=== PATIENT | female | born 1935 | race Caucasian/White ===

== ENCOUNTER 2022-09-25 04:26 | Inpatient (IN) ==
--- NOTE | 2022-09-25 04:42 | Emergency Department Note ---
History of Present Illness General Chief complaint: Illness Stated complaint: ILLNESS Time Seen by Provider: 09/25/22 04:37 Source: patient and EMS Mode of arrival: EMS Limitations: altered mental status History of Present Illness Provider complaint: Fatigue, cough, hypoxia This is an 86-year-old female brought in by EMS from a personal care facility due to concern for increased fatigue, worsening cough, confusion. Patient does not recall when she first started feeling ill. Staff there noticed today the patient seemed worse, more fatigued, increasing cough, and seemed confused. They did check vitals on the patient and found her to be 85% on room air. Patient states she did receive a flu vaccine. It was relayed to EMS by staff at this facility that they have had a lot of flu a positive residence there recently. They state the patient does not typically wear oxygen or have any difficulty breathing. The patient denies any history of asthma, COPD, or tobacco abuse. Patient denies any current chest pain or abdominal pain. EMS reported she was hypoxic for them however improved on 4 L via nasal cannula. Patient did appear clinically dehydrated so they gave her 500 mL bolus of fluids while in route. Home Medications Medication Instructions Recorded Confirmed Type acetaminophen 325 mg capsule 650 mg PO QID PRN Fever Or Pain 09/25/22 09/25/22 History (Tylenol) acetaminophen 500 mg tablet 500 mg PO TID PRN Fever Or Pain 09/25/22 09/25/22 History alendronate 10 mg tablet 10 mg PO DAILY 09/25/22 09/25/22 History apixaban 2.5 mg tablet (Eliquis) 2.5 mg PO DAILY 09/25/22 09/25/22 History calcium carbonate 600 mg-vitamin 1 tab PO TID 09/25/22 09/25/22 History D3 10 mcg (400 unit) tablet (Calcium 600 + D(3)) dextromethorphan polistirex 30 10 ml PO Q12H PRN Cough 09/25/22 09/25/22 History mg/5 mL oral susp ext.release 12hr (Delsym 12 hour) docusate sodium 100 mg capsule 100 mg PO HS 09/25/22 09/25/22 History donepezil 10 mg tablet 10 mg PO HS 09/25/22 09/25/22 History esomeprazole magnesium 40 mg 40 mg PO QAM 09/25/22 09/25/22 History capsule,delayed release hydrocortisone See Rx Instructions .Route .COMPLEX 09/25/22 09/25/22 History hydroxyzine HCl 25 mg tablet 25 mg PO HS 09/25/22 09/25/22 History lidocaine 4 % topical patch 1 patch topical DAILY PRN pain 09/25/22 09/25/22 History (Lidocaine Pain Relief) losartan 25 mg tablet 25 mg PO DAILY 09/25/22 09/25/22 History memantine 10 mg tablet 10 mg PO BID 09/25/22 09/25/22 History multivitamin-iron (hematinic) 1 tab PO DAILY 09/25/22 09/25/22 History pravastatin 80 mg tablet 80 mg PO DAILY 09/25/22 09/25/22 History sertraline 25 mg tablet 25 mg PO USEASDIRECTD PRN 09/25/22 09/25/22 History depression sertraline 50 mg tablet 50 mg PO DAILY 09/25/22 09/25/22 History tolterodine 2 mg capsule,extended 2 mg PO DAILY 09/25/22 09/25/22 History release 24 hr vit D3-folic acid-vit B2-B6-B12 1 tab PO DAILY 09/25/22 09/25/22 History 2,000 unit-800 mcg-0.32 mg tablet Allergies Allergy/AdvReac Type Severity Reaction Status Date / Time Sulfa (Sulfonamide Allergy Unknown Unknown Verified 09/25/22 10: Antibiotics) Past Med/Surg History Medical History A-fib Dementia GERD (gastroesophageal reflux disease) HTN (hypertension) Hyperlipidemia Osteoporosis Social History Smoking Status: Never smoker Second Hand Exposure: No; Do You Dip or Chew Tobacco: No; Tobacco Cessation Education Requested by Patient: No Hx Alcohol Use: No Hx Substance Use: No Preferred Language: Ukrainian Communication Ability: Effective Medical Certification Specialist Required: No Beliefs That Will Affect Care: None Current Living Situation: Alf Feels Safe at Home: Yes Safety Concerns: Feels Safe At This Time Assistive Devices: Wheelchair Review of Systems A total of 10 systems reviewed and were otherwise negative All systems reviewed & are unremarkable except as noted in HPI & below Physical Exam Vital Signs Vital Signs - 24 hr 09/25/22 04:13 Temperature 37.4 C Temperature Source Oral Pulse Rate 72 Respiratory Rate 24 Respiratory Effort / Characteristics Non-Labored Respiratory Depth Normal Blood Pressure 153/67 H Blood Pressure Mean 95 Pulse Oximetry 90 Oxygen Delivery Method Room Air Sepsis Recent Fever Within 48 Hours Yes Sepsis New/Unexplained Change in Mental Status Yes Sepsis Action Taken by Nursing Physician Notified GENERAL: alert, unwell appearing, well nourished, no distress, non-toxic EYE EXAM: normal conjunctiva, PERRL and EOM's grossly intact OROPHARYNX: no exudate, no erythema, lips, buccal mucosa, and tongue normal and mucous membranes are dry NECK: supple, no nuchal rigidity, no adenopathy, non-tender LUNGS: Decreased b/l to auscultation. Normal chest wall mechanics, no w/r/r CHEST WALL: Well-healed surgical scars noted to anterior chest wall including current surgery with prosthetic breast implants. HEART: no murmurs, S1 normal and S2 normal ABDOMEN: abdomen soft, non-tender, normo-active bowel sounds, no masses, no rebound or guarding. BACK: Back is symmetrical on inspection and there is no deformity, no midline tenderness, no CVA tenderness. SKIN: no rashes and no bruising UPPER EXTREMITIES: upper extremities are grossly normal. FROM, nml pulses b/l. LOWER EXTREMITIES: No pitting edema. FROM, nml pulses b/l. NEURO EXAM: Confused to recent events as well as date/time, cranial nerves II- XII grossly intact, normal speech, no gross weakness of arms, no gross weakness of legs. Gross sensation intact. Course Administered Medications Acetaminophen (Acetaminophen 325 Mg Tab) 650 mg PO Q4H PRN PRN Reason: pain/fever Stop: 10/25/22 08:00 Last Admin: 09/26/22 19:48 Dose: 650 mg Documented By: Admin: 09/26/22 08:03 Dose: 650 mg Documented By: IVIS Alendronate Sodium (Alendronate Sodium 10 Mg Tab) 10 mg PO QAM [facility] Stop: 10/26/22 08:59 Last Admin: 09/26/22 08:03 Dose: 10 mg Documented By: IVIS Apixaban (Apixaban 2.5 Mg Tab) 2.5 mg PO BID [facility] Stop: 10/25/22 10:44 Last Admin: 09/26/22 19:18 Dose: 2.5 mg Documented By: Admin: 09/26/22 08:11 Dose: 2.5 mg Documented By: Admin: 09/25/22 19:30 Dose: 2.5 mg Documented By: Admin: 09/25/22 11:45 Dose: 2.5 mg Documented By: CASSI Donepezil HCl (Donepezil Hcl 10 Mg Tab) 10 [facility] [place] Stop: 10/25/22 10:44 Last Admin: 09/26/22 08:11 Dose: 10 mg Documented By: Admin: 09/25/22 11:46 Dose: 10 mg Documented By: CASSI Doxycycline Hyclate (Doxycycline Hyclate 100 Mg Cap) 100 mg PO BID [facility] Stop: 10/03/22 13:59 Last Admin: 09/26/22 19:19 Dose: 100 mg Documented By: STEPHANY Guaifenesin (Guaifenesin 600 Mg Tabcr) 600 mg PO Q12 [facility] Stop: 10/26/22 20:59 Last Admin: 09/26/22 19:48 Dose: 600 mg Documented By: STEPHANY Losartan Potassium (Losartan Potassium 25 Mg Tab) 25 mg PO [facility] Stop: 10/25/22 10:44 Last Admin: 09/26/22 08:10 Dose: 25 mg Documented By: Admin: 09/25/22 11:47 Dose: 25 mg Documented By: CASSI Memantine (Memantine Hcl 10 Mg Tab) 10 mg PO [facility] Stop: 10/25/22 10:44 Last Admin: 09/26/22 08:09 Dose: 10 mg Documented By: Admin: 09/25/22 11:47 Dose: 10 mg Documented By: CASSI Oseltamivir Phosphate (Oseltamivir Phosphate 75 Mg Cap) 75 mg PO BID [facility]; Protocol Stop: 09/30/22 10:44 Last Admin: 09/26/22 19:19 Dose: 75 mg Documented By: Admin: 09/26/22 08:07 Dose: 75 mg Documented By: Admin: 09/25/22 19:30 Dose: 75 mg Documented By: Admin: 09/25/22 11:46 Dose: 75 mg Documented By: CASSI Pantoprazole Sodium (Pantoprazole 40 Mg Tab) 40 mg PO [facility] Stop: 10/25/22 10:44 Last Admin: 09/26/22 08:07 Dose: 40 mg Documented By: Admin: 09/25/22 11:47 Dose: 40 mg Documented By: CASSI Pravastatin Sodium (Pravastatin Sod 40 Mg Tab) 80 mg PO DAILY@1700 [facility] Stop: 10/25/22 16:59 Last Admin: 09/26/22 16:31 Dose: 80 mg Documented By: Admin: 09/25/22 18:17 Dose: 80 mg Documented By: FOSTER Sertraline HCl (Sertraline Hcl 50 Mg Tablet) 50 mg PO [facility] Stop: 10/25/22 10:44 Last Admin: 09/26/22 08:07 Dose: 50 mg Documented By: Admin: 09/25/22 11:47 Dose: 50 mg Documented By: CASSI Tolterodine Tartrate (Tolterodine Tartrate La 2 Mg Capcr) 2 mg PO [facility] Stop: 10/25/22 10:44 Last Admin: 09/26/22 08:07 Dose: 2 mg Documented By: Admin: 09/25/22 11:46 Dose: 2 mg Documented By: CASSI Discontinued Medications Doxycycline Hyclate (Doxycycline Hyclate 100 Mg Cap) 100 mg PO ONE ONE Stop: 09/26/22 14:16 Last Admin: 09/26/22 15:34 Dose: 100 mg Documented By: IVIS Enoxaparin Sodium (Enoxaparin Inj 40 Mg/0.4 Ml Syr) 40 mg SQ Q24H [facility] Stop: 10/25/22 08:00 Last Admin: 09/25/22 12:31 Dose: Not Given Documented By: MERCEDEZ Sodium Chloride (Nss 1000ml) 500 mls @ 999 mls/hr IV .Q31M [facility] Stop: 09/25/22 05:15 Last Infusion: 09/25/22 06:00 Dose: 0 mls/hr Documented By: Admin: 09/25/22 05:04 Dose: 999 mls/hr Documented By: IZA Sodium Chloride (Nss 1000ml) 1,000 mls @ 100 mls/hr IV .Q10H [facility] Stop: 10/25/22 06:29 Last Infusion: 09/25/22 16:58 Dose: 0 mls/hr Documented By: Infusion: 09/25/22 12:31 Dose: 0 mls/hr Documented By: Admin: 09/25/22 06:45 Dose: 100 mls/hr Documented By: IZA Medical Decision Making Differential Diagnosis Differential diagnoses includes but is not limited to pneumonia, bronchitis, COPD/Asthma exacerbation, pneumothorax, pulmonary embolism, congestive heart failure, acute coronary syndrome Medical Records Attestation: I reviewed the patient's medical records. Home Medications Current Medication List: was personally reviewed by me Laboratory Data Attestation: I reviewed the patient's lab results. Result diagrams: 09/26/22 08:23 09/26/22 08:23 Lab Results 09/25/22 09/25/22 09/25/22 Range/Units 04:40 04:40 04:40 WBC 5.95 (4.8-10.8) K/ul RBC 4.29 (3.93-5.22) M/uL Hgb 12.6 (12.0-16.0) g/dl Hct 38.0 (34.1-44.9) % MCV 88.6 (80.0-100.0) fL MCH 29.4 (25.0-34.0) pg MCHC 33.2 (32.0-36.0) g/dL RDW Std Deviation 45.5 (36.4-46.3) fL RDW Coeff of Kim 14.0 (11.5-14.5) % Plt Count 174 (130-400) K/uL MPV 9.6 (9.4-12.3) fL Immature Gran % (Auto) 0.5 % Neut % (Auto) 80.3 % Lymph % (Auto) 8.4 % Tripp % (Auto) 9.6 % Eos % (Auto) 1.0 % Baso % (Auto) 0.2 % Neut # (Auto) 4.78 (1.4-6.5) K/uL Lymph # (Auto) 0.50 L (1.2-3.4) K/uL Tripp # (Auto) 0.57 (0.24-0.82) K/uL Eos # (Auto) 0.06 (0-0.50) K/uL Baso # (Auto) 0.01 (0-0.2) K/uL Immature Gran # (Auto) 0.03 H (0.00-0.02) K/uL Sodium 136 (136-145) mmol/L Potassium TNP Chloride 104 (98-107) mmol/L Carbon Dioxide 26 (21-32) mmol/L Anion Gap 6 (3-11) BUN 15 (6-23) mg/dl Creatinine 0.63 (0.6-1.2) mg/dl Est Cr Clr Drug Dosing 61.8 ml/min Est GFR ( Amer) 95.5 ml/min Est GFR (Non-Af Amer) 82.4 ml/min BUN/Creatinine Ratio 23.8 H (10-20) Glucose 135 H (70-99(Fasting)) mg/dl Lactate 0.7 (0.4-2.0) mmol/L Calcium 8.9 (8.5-10.1) mg/dl Magnesium 1.7 (1.7-2.4) mg/dl Total Bilirubin 0.4 (0.2-1.0) mg/dl Direct Bilirubin TNP AST TNP ALT 19 (7-52) U/L Alkaline Phosphatase 59 (34-104) U/L Troponin I High Sens 14.7 H (0-14) pg/ml Total Protein 6.1 (6.0-8.3) gm/dl Albumin 3.7 (3.4-5.0) gm/dl Procalcitonin (0-0.5) ng/ml SARS-CoV-2 (PCR) (Negative) Influenza Type A (PCR) (Neg) Influenza Type B (PCR) (Neg) RSV (RT-PCR) (Neg) 09/25/22 09/25/22 09/25/22 Range/Units 04:40 04:40 06:04 WBC (4.8-10.8) K/ul RBC (3.93-5.22) M/uL Hgb (12.0-16.0) g/dl Hct (34.1-44.9) % MCV (80.0-100.0) fL MCH (25.0-34.0) pg MCHC (32.0-36.0) g/dL RDW Std Deviation (36.4-46.3) fL RDW Coeff of Kim (11.5-14.5) % Plt Count (130-400) K/uL MPV (9.4-12.3) fL Immature Gran % (Auto) % Neut % (Auto) % Lymph % (Auto) % Tripp % (Auto) % Eos % (Auto) % Baso % (Auto) % Neut # (Auto) (1.4-6.5) K/uL Lymph # (Auto) (1.2-3.4) K/uL Tripp # (Auto) (0.24-0.82) K/uL Eos # (Auto) (0-0.50) K/uL Baso # (Auto) (0-0.2) K/uL Immature Gran # (Auto) (0.00-0.02) K/uL Sodium (136-145) mmol/L Potassium 4.0 Chloride (98-107) mmol/L Carbon Dioxide (21-32) mmol/L Anion Gap (3-11) BUN (6-23) mg/dl Creatinine (0.6-1.2) mg/dl Est Cr Clr Drug Dosing ml/min Est GFR ( Amer) ml/min Est GFR (Non-Af Amer) ml/min BUN/Creatinine Ratio (10-20) Glucose (70-99(Fasting)) mg/dl Lactate (0.4-2.0) mmol/L Calcium (8.5-10.1) mg/dl Magnesium (1.7-2.4) mg/dl Total Bilirubin (0.2-1.0) mg/dl Direct Bilirubin 0.0 AST 24 ALT (7-52) U/L Alkaline Phosphatase (34-104) U/L Troponin I High Sens (0-14) pg/ml Total Protein (6.0-8.3) gm/dl Albumin (3.4-5.0) gm/dl Procalcitonin < 0.05 (0-0.5) ng/ml SARS-CoV-2 (PCR) NEGATIVE (Negative) Influenza Type A (PCR) Positive A* (Neg) Influenza Type B (PCR) Negative (Neg) RSV (RT-PCR) Negative (Neg) Imaging Data My Impression: X-ray: I interpreted the following studies. Chest: A single view study of the chest was reviewed and was negative for cardiomegaly, focal infiltrate, effusion, pulmonary edema, or wide mediastinum. Pacemaker noted. Radiologist's Impression: CT OF THE HEAD WITHOUT CONTRAST CLINICAL HISTORY: Confusion. COMPARISON STUDY: No previous studies for comparison. CT DOSE: 614.27 mGy.cm TECHNIQUE: Helical axial images of the head were obtained without IV contrast. Automated exposure control was utilized for the study. A dose lowering technique was utilized adhering to the principles of ALARA. FINDINGS: No acute intracranial hemorrhage, midline shift or mass effect is present. There is moderate dilatation of the lateral ventricles. There is mild dilatation of the third and fourth ventricles. Basal cisterns are patent. No extra-axial fluid collections are present. 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 White matter hypodensities statistically reflect small vessel disease. There are no findings to suggest acute dural sinus thrombosis or acute territorial infarct. There is no acute calvarial fracture. Minimal sinus mucosal thickening is present. Suspected old defect within the left orbital floor is noted. Degenerative changes of the temporomandibular joints are present. IMPRESSION: 1. No acute intracranial hemorrhage. 2. Moderate dilatation of the lateral ventricles. This is likely due to atrophy. Normal pressure hydrocephalus could appear similar but is considered less likely. 3. 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 ACT 112: Negative or not required by law. Electronically signed by: Joe Vivas M.D. 09/25/2022 6:46 AM ECG Data Attestation: I personally reviewed and interpreted this ECG as follows: Indication: + weakness Rate (beats per minute): 63 Rhythm: + normal sinus ECG Intervals/blocks: + Normal QRS and + Normal QT ECG [place]: + Normal ECG ST segments: + Nonspecific ST abnormalities MDM Narrative An order was placed for continuous cardiac monitoring. The monitor shows a rate of _70_ with __normal sinus_ rhythm. This is an 86 yo female brought in by EMS from facility due to concern for increased fatigue, worsening cough, mild confusion and finding of hypoxia on check of VS. Patient's hypoxia improved with oxygen via [place] for EMS and she had no increased wob. VS stable enroute and while in the ER. She was given 500 ml by ems, another 500 ml here and the decreased to maintenance due to unclear cardiac history. Patient slightly confused to chronology of events and date on arrival but knew person/ and place. Labs sent and cxr performed. EKG reassuring. No focal consolidation on my view of the cxr. No obvious adventitious lung sounds on exam. CT head reassuring. Patient found to be positive for flu. Given advanced age and viral infection, this likely explains other symptoms noted. Discussed with hospitalist for additional inpatient mgmt. UA still pending as was med list from facility. Impression & Plan Dyspnea, Hypoxia, Confusion, Influenza, Dehydration Discharge Plan Visit Data Chief Complaint: Illness Stated Complaint: ILLNESS ED Provider: Beverly Tavarez Discharge Problem: Dyspnea, Hypoxia, Confusion, Influenza, Dehydration Patient Disposition: Admitted As Inpatient Discharge Instructions Interventions: ED Discharge Assessment Last Done: 09/25/22 07:59
[2022-09-25] MEDS ORDERED: SODIUM CHLORIDE 0.9% 1000ML 500 ML IV SCH (04:45)
[2022-09-25 05:05] LABS: Basophils # (auto) 0.01 K/uL (0-0.2); Basophils % (auto) 0.2 %; Eosinophils # (auto) 0.06 K/uL (0-0.50); Hemoglobin 12.6 g/dl (12.0-16.0); Immature Granulocytes # (auto) 0.03 K/uL (0.00-0.02); Immature Granulocytes % (auto) 0.5 %; Lymphocytes % (auto) 8.4 %; Mean Corpuscular Hemoglobin 29.4 pg (25.0-34.0); Mean Corpuscular Hgb Conc 33.2 g/dL (32.0-36.0); Mean Corpuscular Volume 88.6 fL (80.0-100.0); Mean Platelet Volume 9.6 fL (9.4-12.3); Monocytes # (auto) 0.57 K/uL (0.24-0.82); Monocytes % (auto) 9.6 %; Neutrophils # (auto) 4.78 K/uL (1.4-6.5); Neutrophils % (auto) 80.3 %; Platelet Count 174 K/uL (130-400); RDW Standard Deviation 45.5 fL (36.4-46.3); Red Blood Count 4.29 M/uL (3.93-5.22); White Blood Count 5.95 K/ul (4.8-10.8)
[2022-09-25 05:30] LABS: Alanine Aminotransferase 19 U/L (7-52); Albumin Level 3.7 gm/dl (3.4-5.0); Alkaline Phosphatase 59 U/L (34-104); Anion Gap 6 (3-11); BUN Creatinine Ratio 23.8 (10-20); Bilirubin,Total 0.4 mg/dl (0.2-1.0); Blood Urea Nitrogen 15 mg/dl (6-23); Calcium 8.9 mg/dl (8.5-10.1); Carbon Dioxide 26 mmol/L (21-32); Chloride 104 mmol/L (98-107); Creatinine Clr Calc Pharmacy 61.8 ml/min; Est GFR (African American) 95.5 ml/min; Est GFR (Non-African American) 82.4 ml/min; Glucose 135 mg/dl (70-99(Fasting)); Magnesium 1.7 mg/dl (1.7-2.4); Sodium 136 mmol/L (136-145); Total Protein 6.1 gm/dl (6.0-8.3)
[2022-09-25 06:02] LABS: Influenza B virus by PCR Negative (Neg); RSV by PCR Negative (Neg); SARS CoV2 RNA(COVID-19) Ceph NEGATIVE (Negative)
[2022-09-25] MEDS ORDERED: SODIUM CHLORIDE 0.9% 1000ML 1,000 ML IV SCH (06:30)
[2022-09-25 06:35] LABS: Influenza A virus by PCR Positive (Neg)
--- NOTE | 2022-09-25 06:47 | CT Scan Report ---
CT OF THE HEAD WITHOUT CONTRAST CLINICAL HISTORY: Confusion. COMPARISON STUDY: No previous studies for comparison. CT DOSE: 614.27 mGy.cm TECHNIQUE: Helical axial images of the head were obtained without IV contrast. Automated exposure con trol was utilized for the study. A dose lowering technique was utilized adhering to the principles o f ALARA. FINDINGS: No acute intracranial hemorrhage, midline shift or mass effect is present. There is moderat e dilatation of the lateral ventricles. There is mild dilatation of the third and fourth ventricles. Basal cisterns are patent. No extra-axial fluid collections are present. 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 White matter hypodensities statistically reflect small vessel d isease. There are no findings to suggest acute dural sinus thrombosis or acute territorial infarct. T here is no acute calvarial fracture. Minimal sinus mucosal thickening is present. Suspected old defec t within the left orbital floor is noted. Degenerative changes of the temporomandibular joints are pr esent. IMPRESSION: 1. No acute intracranial hemorrhage. 2. Moderate dilatation of the lateral ventricles. This is likely due to atrophy. Normal pressure hydr ocephalus could appear similar but is considered less likely. 3. 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 ACT 112: Negative or not required by law. Electronically signed by: Joe Vivas M.D. 09/25/2022 6:46 AM
--- NOTE | 2022-09-25 06:52 | XRay Report ---
XR chest 1V portable CLINICAL HISTORY: Sepsis. COMPARISON STUDY: No previous studies for comparison. FINDINGS: Left subclavian pacer and left axillary surgical clips are incidentally noted. 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 Patient i s rotated. No pneumothorax or pleural effusion is present. Cardiac size is within normal limits. Ther e is no evidence for pulmonary edema. Left basilar airspace opacity is present. No airspace opacities within the right lung is present. Extensive atherosclerotic plaque of the aortic arch. IMPRESSION: Left basilar airspace opacity suspicious for pneumonia. Radiographic follow-up to ensure resolution is recommended. ACT 112: Negative or not required by law. Electronically signed by: Joe Vivas M.D. 09/25/2022 6:50 AM
--- NOTE | 2022-09-25 07:39 | History & Physical Report ---
Date of Service September 25, 2022 Assessment & Plan (1) Influenza A: Plan: - Patient was placed on 2 Liters O2 nasal canula and is currently saturating well at 96% and in NAD - Started on Oseltamivir 75mg BID (2) Hypoxia: Plan: - See above (3) HTN (hypertension): Plan: - Continue home medications Donepezil 10mg, Losartan 25mg (4) Hyperlipidemia: Plan: - Continue Pravastatin 80mg (5) GERD (gastroesophageal reflux disease): Plan: - Pantoprazole 40mg daily (6) A-fib: Plan: Continue home medication Eliquis 2.5mg BID (7) Dementia: Plan: - Continue Memantine 10mg - Patient is A&O x 3 Plan Patient had EKG changes and no previous EKG to compare. Mildly elevated troponin. She has no Chest pain or Dyspnea Will repeat Troponin and also ordered an echo Discussed patient with Dr Carroll, who helped in treatment and management of this patient Admission and Anticipated Discharge Date Admission Date: September 25, 2022 History of Present Illness Chief Complaint: cough, weakness Primary Care Provider: [employer] This is a 86 year old female with a past medical history of HTN, HLD, A Fib on Eliquis, Dementia, GERD, osteoporosis who presented to [facility] via EMS from [facility] today with complaints of increasing lethargy, cough and was found to be saturating at 85% on RA when EMS arrived. Patient has had no prior history of SOB, asthma, or COPD. Patient has never had to use oxygen and no history of SOLANGE. [facility], patient had increasing fatigue and coughing. There were several other residents at the home with Delano gould. Patient has no history of tobacco abuse. Patient denies any abdominal pain, nausea, vomiting, chest pain or dyspnea. EMS notes stated she improved after applying 4L NC oxygen. Currently patient is on 2L NC oxygen and saturating at 98%. She is not SOB and in NAD. She is able to speak in complete sentences without difficulty. Patient was also given a 500mL bolus of fluids in route. Currently patient tells me she is feeling much better. EKG revealed NSR, incomplete right BBB, possible Inferior infarct, age undetermined Mildly elevated troponin of 14.7 No previous EKGs to compare Patient denies any dyspnea or Chest Pain Repeat Troponin level and also Echo Patient has a hx of Dementia but she is Alert and Oriented x 3 and discussed code status with patient and she stated she would not want any chest compressions, CPR or intubation. She wished to be DNR/DNI I also spoke with patient's daughter Katarina via the phone who advised that her mother is DNR/DNI code status. Allergies Allergy/AdvReac Type Severity Reaction Status Date / Time Sulfa (Sulfonamide Allergy Unknown Unknown Verified 09/25/22 10:22 Antibiotics) Home Medications Medication Instructions Recorded Confirmed Type acetaminophen 325 mg capsule 650 mg PO QID PRN Fever Or Pain 09/25/22 09/25/22 History (Tylenol) acetaminophen 500 mg tablet 500 mg PO TID PRN Fever Or Pain 09/25/22 09/25/22 History alendronate 10 mg tablet 10 mg PO DAILY 09/25/22 09/25/22 History apixaban 2.5 mg tablet (Eliquis) 2.5 mg PO DAILY 09/25/22 09/25/22 History calcium carbonate 600 mg-vitamin 1 tab PO TID 09/25/22 09/25/22 History D3 10 mcg (400 unit) tablet (Calcium 600 + D(3)) dextromethorphan polistirex 30 10 ml PO Q12H PRN Cough 09/25/22 09/25/22 History mg/5 mL oral susp ext.release 12hr (Delsym 12 hour) docusate sodium 100 mg capsule 100 mg PO HS 09/25/22 09/25/22 History donepezil 10 mg tablet 10 mg PO HS 09/25/22 09/25/22 History esomeprazole magnesium 40 mg 40 mg PO QAM 09/25/22 09/25/22 History capsule,delayed release hydrocortisone See Rx Instructions .Route .COMPLEX 09/25/22 09/25/22 History hydroxyzine HCl 25 mg tablet 25 mg PO HS 09/25/22 09/25/22 History lidocaine 4 % topical patch 1 patch topical DAILY PRN pain 09/25/22 09/25/22 History (Lidocaine Pain Relief) losartan 25 mg tablet 25 mg PO DAILY 09/25/22 09/25/22 History memantine 10 mg tablet 10 mg PO BID 09/25/22 09/25/22 History multivitamin-iron (hematinic) 1 tab PO DAILY 09/25/22 09/25/22 History pravastatin 80 mg tablet 80 mg PO DAILY 09/25/22 09/25/22 History sertraline 25 mg tablet 25 mg PO USEASDIRECTD PRN 09/25/22 09/25/22 History depression sertraline 50 mg tablet 50 mg PO DAILY 09/25/22 09/25/22 History tolterodine 2 mg capsule,extended 2 mg PO DAILY 09/25/22 09/25/22 History release 24 hr vit D3-folic acid-vit B2-B6-B12 1 tab PO DAILY 09/25/22 09/25/22 History 2,000 unit-800 mcg-0.32 mg tablet Past Med/Surg History Medical History A-fib Dementia GERD (gastroesophageal reflux disease) HTN (hypertension) Hyperlipidemia Osteoporosis Social History Smoking Status: Never smoker Second Hand Exposure: No; Do You Dip or Chew Tobacco: No; Tobacco Cessation Education Requested by Patient: No Hx Alcohol Use: No Hx Substance Use: No Preferred Language: Georgian Communication Ability: Effective Rug Cleaning Supervisor Required: No Beliefs That Will Affect Care: None Current Living Situation: Group Home Feels Safe at Home: Yes Safety Concerns: Feels Safe At This Time Assistive Devices: Wheelchair Review of Systems Constitutional: + fever, + chills, + body aches and + fatigue; no anorexia and no weight loss Eyes: no blind spots, no loss of peripheral vision and no problem reported Ear, Nose, Mouth, Throat: + nasal congestion and + post nasal drip; no sinus pain/pressure Respiratory: + cough and + chest congestion; no dyspnea, no hemoptysis and no pain on inspiration Cardiovascular: no chest pain, no chest pain with activity, no dyspnea at rest and no calf pain Gastrointestinal: no abdominal pain, no nausea, no vomiting and no dysphagia Musculoskeletal: + body aches; no neck pain and no muscle weakness Integumentary: no rash, no lesions and no new lesions Physical Exam Constitutional: well developed, well nourished and average body habitus; not diaphoretic ENMT: external ear and nose normal, oropharynx normal Neck: trachea midline, no thyromegaly Respiratory: normal respiratory effort, + cough, able to speak in complete sentences and symmetric chest movement; no labored breathing Cardiovascular: Rate/Rhythm: regular rate and regular rhythm Extremities: + edema; no calf tenderness Gastrointestinal (Abdomen): normal bowel sounds, soft, nontender, no hepatosplenomegaly Psychiatric: A+Ox3, euthymic affect Results & Data Results & Data ([facility]) Vital Signs (Past 12 Hours) Vital Signs Temp Pulse Resp BP Pulse Ox O2 Del Method O2 Flow Rate 09/25/22 06:53 98 Nasal Cannula 09/25/22 04:53 96 Nasal Cannula 09/25/22 04:37 98 Nasal Cannula 09/25/22 04:38 Nasal Cannula 09/25/22 04:38 96 Nasal Cannula 4 09/25/22 04:13 37.4 C 72 24 153/67 H 90 Room Air Laboratory Results Laboratory Results - last 24 hr 09/25/22 09/25/22 09/25/22 04:40 04:40 04:40 WBC 5.95 RBC 4.29 Hgb 12.6 Hct 38.0 MCV 88.6 MCH 29.4 MCHC 33.2 RDW Std Deviation 45.5 RDW Coeff of Kim 14.0 Plt Count 174 MPV 9.6 Immature Gran % (Auto) 0.5 Neut % (Auto) 80.3 Lymph % (Auto) 8.4 Bailey % (Auto) 9.6 Eos % (Auto) 1.0 Baso % (Auto) 0.2 Neut # (Auto) 4.78 Lymph # (Auto) 0.50 L Bailey # (Auto) 0.57 Eos # (Auto) 0.06 Baso # (Auto) 0.01 Immature Gran # (Auto) 0.03 H Sodium 136 Potassium TNP Chloride 104 Carbon Dioxide 26 Anion Gap 6 BUN 15 Creatinine 0.63 Est Cr Clr Drug Dosing 61.8 Est GFR ( Amer) 95.5 Est GFR (Non-Af Amer) 82.4 BUN/Creatinine Ratio 23.8 H Glucose 135 H Lactate 0.7 Calcium 8.9 Magnesium 1.7 Total Bilirubin 0.4 Direct Bilirubin TNP AST TNP ALT 19 Alkaline Phosphatase 59 Troponin I High Sens 14.7 H Total Protein 6.1 Albumin 3.7 Procalcitonin SARS-CoV-2 (PCR) Influenza Type A (PCR) Influenza Type B (PCR) RSV (RT-PCR) 12/12/1609/25/22 09/25/22 04:40 04:40 06:04 WBC RBC Hgb Hct MCV MCH MCHC RDW Std Deviation RDW Coeff of Kim Plt Count MPV Immature Gran % (Auto) Neut % (Auto) Lymph % (Auto) Bailey % (Auto) Eos % (Auto) Baso % (Auto) Neut # (Auto) Lymph # (Auto) Bailey # (Auto) Eos # (Auto) Baso # (Auto) Immature Gran # (Auto) Sodium Potassium 4.0 Chloride Carbon Dioxide Anion Gap BUN Creatinine Est Cr Clr Drug Dosing Est GFR ( Amer) Est GFR (Non-Af Amer) BUN/Creatinine Ratio Glucose Lactate Calcium Magnesium Total Bilirubin Direct Bilirubin 0.0 AST 24 ALT Alkaline Phosphatase Troponin I High Sens Total Protein Albumin Procalcitonin < 0.05 SARS-CoV-2 (PCR) NEGATIVE Influenza Type A (PCR) Positive A* Influenza Type B (PCR) Negative RSV (RT-PCR) Negative Diagnostic Findings Chest X-Ray 09/25/22 04:38 XR chest 1V portable CLINICAL HISTORY: Sepsis. COMPARISON STUDY: No previous studies for comparison. FINDINGS: Left subclavian pacer and left axillary surgical clips are incidentally noted. 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 Patient is rotated. No pneumothorax or pleural effusion is present. Cardiac size is within normal limits. There is no evidence for pulmonary edema. Left basilar airspace opacity is present. No airspace opacities within the right lung is present. Extensive atherosclerotic plaque of the aortic arch. IMPRESSION: Left basilar airspace opacity suspicious for pneumonia. Radiographic follow-up to ensure resolution is recommended. ACT 112: Negative or not required by law. Electronically signed by: Joe Vivas M.D. 09/25/2022 6:[address] 09/25/22 06:02 CT OF THE HEAD WITHOUT CONTRAST CLINICAL HISTORY: Confusion. COMPARISON STUDY: No previous studies for comparison. CT DOSE: 614.27 mGy.cm TECHNIQUE: Helical axial images of the head were obtained without IV contrast. Automated exposure control was utilized for the study. A dose lowering technique was utilized adhering to the principles of ALARA. FINDINGS: No acute intracranial hemorrhage, midline shift or mass effect is present. There is moderate dilatation of the lateral ventricles. There is mild dilatation of the third and fourth ventricles. Basal cisterns are patent. No extra-axial fluid collections are present. 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 White matter hypodensities statistically reflect small vessel disease. There are no findings to suggest acute dural sinus thrombosis or acute territorial infarct. There is no acute calvarial fracture. Minimal sinus mucosal thickening is present. Suspected old defect within the left orbital floor is noted. Degenerative changes of the temporomandibular joints are present. IMPRESSION: 1. No acute intracranial hemorrhage. 2. Moderate dilatation of the lateral ventricles. This is likely due to atrophy. Normal pressure hydrocephalus could appear similar but is considered less likely. 3. 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 ACT 112: Negative or not required by law. Electronically signed by: Joe Vivas M.D. 09/25/2022 6:46 AM Code Status & VTE Plan Code Status DNR/DNI VTE Prophylaxis Plan VTE Prophylaxis will be ordered: Yes Supervising Physician Co-Signing Physician Notes Patient seen and examined at bedside. During face to face encounter, I obtained a history and performed a physical examination. I discussed plan of care with patient and GLENDY Bo. I reviewed above note and agree with it. Patient will be admitted with the flu and placed on tamiflu. PG Care Time/CCT Total # of Minutes Spent Total Time Spent with Patient: Total time spent is greater than 50% in coordination of care (as documented) at patient's floor/unit and/or counseling patient: [place] [address] Initial Inpt Care Lvl 3 Patient Type New Medical Decision Making High Complexity Diagnoses Influenza A J10.1 Hypoxia R09.02 HTN (hypertension) I10 Hyperlipidemia E78.5 GERD (gastroesophageal reflux disease) K21.9 A-fib I48.91 Dementia F03.90 Time Spent (min) 45
[2022-09-25] MEDS ORDERED: ENOXAPARIN INJ 40 MG/0.4 ML SYR SQ SCH (08:01)
[2022-09-25] MEDS ORDERED: ONDANSETRON INJ 2 MG/ML 2 ML VIAL IV PRN (08:01)
[2022-09-25] MEDS ORDERED: DOCUSATE SODIUM 100 MG CAP PO PRN (08:01)
[2022-09-25] MEDS ORDERED: BENZONATATE 100 MG CAPSULE PO PRN (08:01)
[2022-09-25 08:10] LABS: Troponin I High Sensitivity 14.7 pg/ml (0-14)
[2022-09-25] MEDS ORDERED: Patient's ALLERGY Info needs ENTERED SCH (08:15)
[2022-09-25] MEDS: APIXABAN 2.5 MG TAB PO SCH ×2 (11:45→19:30)
[2022-09-25] MEDS: DONEPEZIL HCL 10 MG TAB PO SCH (11:46)
[2022-09-25] MEDS: OSELTAMIVIR PHOSPHATE 75 MG CAP PO SCH ×2 (11:46→19:30)
[2022-09-25] MEDS: TOLTERODINE TARTRATE LA 2 MG CAPCR PO SCH (11:46)
[2022-09-25] MEDS: PANTOprazole 40 MG TAB PO SCH (11:47)
[2022-09-25] MEDS: SERTRALINE HCL 50 MG TABLET PO SCH (11:47)
[2022-09-25] MEDS: LOSARTAN POTASSIUM 25 MG TAB PO SCH (11:47)
[2022-09-25] MEDS: MEMANTINE HCL 10 MG TAB PO SCH (11:47)
[2022-09-25] MEDS: PRAVASTATIN SOD 40 MG TAB PO SCH (18:17)
--- NOTE | 2022-09-25 20:05 | Electrocardiogram Report ---
Test Reason : Blood Pressure : / mmHG Vent. Rate : 063 BPM Atrial Rate : 063 BPM P-R Int : 156 ms QRS Dur : 096 ms QT Int : 422 ms P-R-T Axes : 094 -28 040 degrees QTc Int : 431 ms Poor data quality, interpretation may be adversely affected Normal sinus rhythm Incomplete right bundle branch block Possible Inferior infarct , age undetermined Abnormal ECG No previous ECGs available Confirmed by Theo Prince ([id number]) on 09/25/2022 8:05:08 PM Referred By: Ej Villanueva [facility] Confirmed By:Willy Prince
[2022-09-26] MEDS: ALENDRONATE SODIUM 10 MG TAB PO SCH (08:03)
[2022-09-26] MEDS: ACETAMINOPHEN 325 MG TAB PO PRN ×2 (08:03→19:48)
[2022-09-26] MEDS: SERTRALINE HCL 50 MG TABLET PO SCH (08:07)
[2022-09-26] MEDS: PANTOprazole 40 MG TAB PO SCH (08:07)
[2022-09-26] MEDS: OSELTAMIVIR PHOSPHATE 75 MG CAP PO SCH ×2 (08:07→19:19)
[2022-09-26] MEDS: TOLTERODINE TARTRATE LA 2 MG CAPCR PO SCH (08:07)
[2022-09-26] MEDS: MEMANTINE HCL 10 MG TAB PO SCH (08:09)
[2022-09-26] MEDS: LOSARTAN POTASSIUM 25 MG TAB PO SCH (08:10)
[2022-09-26] MEDS: DONEPEZIL HCL 10 MG TAB PO SCH (08:11)
[2022-09-26] MEDS: APIXABAN 2.5 MG TAB PO SCH ×2 (08:11→19:18)
[2022-09-26 09:16] LABS: Hematocrit (blood only) 39.2 % (34.1-44.9); Hemoglobin 12.7 g/dl (12.0-16.0); Mean Corpuscular Hemoglobin 28.9 pg (25.0-34.0); Mean Corpuscular Hgb Conc 32.4 g/dL (32.0-36.0); Mean Corpuscular Volume 89.3 fL (80.0-100.0); Platelet Count 152 K/uL (130-400); RDW Coefficient of Variation 14.2 % (11.5-14.5); RDW Standard Deviation 46.2 fL (36.4-46.3); Red Blood Count 4.39 M/uL (3.93-5.22); White Blood Count 6.28 K/ul (4.8-10.8)
[2022-09-26 09:36] LABS: BUN Creatinine Ratio 29.4 (10-20); Calcium 8.1 mg/dl (8.5-10.1); Creatinine Clr Calc Pharmacy 78.7 ml/min; Est GFR (African American) 102.3 ml/min; Est GFR (Non-African American) 88.3 ml/min; Potassium 3.8 mmol/L (3.5-5.1)
[2022-09-26] MEDS ORDERED: DOXYCYCLINE HYCLATE 100 MG CAP PO SCH (14:00)
[2022-09-26] MEDS ORDERED: DOXYCYCLINE HYCLATE 100 MG CAP PO ONE (14:15)
--- NOTE | 2022-09-26 16:06 | Hospitalist Progress Note ---
Date of Service September 26, 2022 Assessment & Plan (1) Influenza A: Plan: Influenza A Hypoxia Possible left basilar pneumonia CXR:Left basilar airspace opacity suspicious for pneumonia. Radiographic follow- up to ensure resolution is recommended. Normal procalcitonin Continue Tamiflu Also started on doxycycline Continue Mucinex, pulmonary hygiene Aspiration precautions Continue supplemental oxygen as needed Hypertension Continue losartan Monitor Dementia Continue home medications Reorient frequently to minimize delirium Hyperlipidemia On statin GERD on PPI Paroxysmal A. fib On Eliquis DVT prophylaxis On Eliquis CODE STATUS DNI DNR Admission and Anticipated Discharge Date Admission Date: September 25, 2022 Subjective Patient is seen and examined at bedside States feeling lethargic and has non expectorant cough Denies any chest pain, dizziness, dyspnea, nausea, abdominal pain No other complaints Febrile today Saturating well on 3 L supplemental oxygen Review of Systems Review of Systems: All systems reviewed & are unremarkable except as noted in Subjective Physical Exam Physical Exam: Physical Exam: Vitals signs as noted above General Appearance:Moderately built and nourished, no apparent distress, ill appearing Head: normocephalic, Atraumatic Eyes: normal inspection, EOMI Neck: supple, Trachea midline Respiratory/Chest: Coarse breath sounds, CTA, No accessory muscle use Cardiovascular: S1, S2, No murmur Abdomen/GI:Soft, Non tender, Bowel sounds present Extremities/Musculoskeletal:normal inspection, no edema Neurologic/Psych:AAOX3, grossly no focal neurological deficits Skin: normal color, warm Results & Data Results & Data ([facility]) Vital Signs (Past 12 Hours) Vital Signs Temp Pulse Resp BP BP Pulse Ox O2 Del Method 09/26/22 15:24 38 C H 64 20 110/56 L 95 Nasal Cannula 09/26/22 12:13 Nasal Cannula 09/26/22 07:48 37.8 C H 93 H 20 166/80 H 93 Nasal Cannula 09/26/22 07:37 38.2 C H 69 20 169/78 H 187/80 H 96 Nasal Cannula O2 Flow Rate 09/26/22 15:24 3 09/26/22 12:13 3 09/26/22 07:48 2 09/26/22 07:37 2 Laboratory Results Short CBC 09/26/22 Range/Units 08:23 WBC 6.28 (4.8-10.8) K/ul Hgb 12.7 (12.0-16.0) g/dl Hct 39.2 (34.1-44.9) % Plt Count 152 (130-400) K/uL BMP 09/26/22 08:23 Sodium 132 L Potassium 3.8 Chloride 101 Carbon Dioxide 25 BUN 15 Creatinine 0.51 L Glucose 103 H Calcium 8.1 L
[2022-09-26] MEDS: PRAVASTATIN SOD 40 MG TAB PO SCH (16:31)
[2022-09-26] MEDS: DOXYCYCLINE HYCLATE 100 MG CAP PO SCH (19:19)
[2022-09-26] MEDS: guaiFENesin 600 MG TABCR PO SCH (19:48)
[2022-09-27 08:56] LABS: Hematocrit (blood only) 38.1 % (34.1-44.9); Hemoglobin 12.7 g/dl (12.0-16.0); Mean Corpuscular Hemoglobin 29.5 pg (25.0-34.0); Mean Corpuscular Hgb Conc 33.3 g/dL (32.0-36.0); Mean Corpuscular Volume 88.4 fL (80.0-100.0); Mean Platelet Volume 10.2 fL (9.4-12.3); Platelet Count 169 K/uL (130-400); RDW Standard Deviation 45.7 fL (36.4-46.3); Red Blood Count 4.31 M/uL (3.93-5.22); White Blood Count 6.62 K/ul (4.8-10.8)
[2022-09-27] MEDS: guaiFENesin 600 MG TABCR PO SCH ×2 (09:02→19:20)
[2022-09-27] MEDS: OSELTAMIVIR PHOSPHATE 75 MG CAP PO SCH ×2 (09:02→19:21)
[2022-09-27] MEDS: TOLTERODINE TARTRATE LA 2 MG CAPCR PO SCH (09:02)
[2022-09-27] MEDS: ALENDRONATE SODIUM 10 MG TAB PO SCH (09:02)
[2022-09-27] MEDS: PANTOprazole 40 MG TAB PO SCH (09:02)
[2022-09-27] MEDS: LOSARTAN POTASSIUM 25 MG TAB PO SCH (09:03)
[2022-09-27] MEDS: SERTRALINE HCL 50 MG TABLET PO SCH (09:03)
[2022-09-27] MEDS: DOXYCYCLINE HYCLATE 100 MG CAP PO SCH ×2 (09:03→19:20)
[2022-09-27] MEDS: DONEPEZIL HCL 10 MG TAB PO SCH (09:03)
[2022-09-27] MEDS: APIXABAN 2.5 MG TAB PO SCH ×2 (09:03→19:21)
[2022-09-27] MEDS: MEMANTINE HCL 10 MG TAB PO SCH (09:03)
[2022-09-27 09:30] LABS: BUN Creatinine Ratio 25.5 (10-20); Calcium 8.2 mg/dl (8.5-10.1); Creatinine Clr Calc Pharmacy 85.4 ml/min; Est GFR (African American) 105.1 ml/min; Est GFR (Non-African American) 90.7 ml/min; Potassium 3.4 mmol/L (3.5-5.1)
[2022-09-27] MEDS ORDERED: POTASSIUM CHLORIDE CRTAB 20 MEQ TABCR PO ONE (10:21)
--- NOTE | 2022-09-27 15:10 | Hospitalist Progress Note ---
Date of Service September 27, 2022 Assessment & Plan (1) Influenza: Plan: Influenza A Hypoxia Possible left basilar pneumonia CXR:Left basilar airspace opacity suspicious for pneumonia. Radiographic follow- up to ensure resolution is recommended. Normal procalcitonin Continue Tamiflu Also started on doxycycline Continue Mucinex, pulmonary hygiene Aspiration precautions Continue supplemental oxygen as needed Slowly improving Continue current management Hypertension Continue losartan Monitor Dementia Continue home medications Reorient frequently to minimize delirium Hyperlipidemia On statin GERD on PPI Paroxysmal A. fib On Eliquis DVT prophylaxis On Eliquis CODE STATUS DNI DNR Admission and Anticipated Discharge Date Admission Date: September 25, 2022 Subjective Patient is seen and examined at bedside Less cough today Pleasantly confused Feels chest is slightly congested Denies any chest pain, dizziness, dyspnea, nausea, abdominal pain Afebrile Saturating well on 3 L supplemental oxygen Review of Systems Review of Systems: All systems reviewed & are unremarkable except as noted in Subjective Physical Exam Physical Exam: Physical Exam: Vitals signs as noted above General Appearance:Moderately built and nourished, no apparent distress, ill appearing Head: normocephalic, Atraumatic Eyes: normal inspection, EOMI Neck: supple, Trachea midline Respiratory/Chest: Coarse breath sounds, CTA, No accessory muscle use Cardiovascular: S1, S2, No murmur Abdomen/GI:Soft, Non tender, Bowel sounds present Extremities/Musculoskeletal:normal inspection, no edema Neurologic/Psych:AAOX3, grossly no focal neurological deficits Skin: normal color, warm Results & Data Results & Data ([facility]) Vital Signs (Past 12 Hours) Vital Signs Temp Pulse Resp BP Pulse Ox O2 Del Method O2 Flow Rate 09/27/22 10:45 Nasal Cannula 3 09/27/22 07:42 37.3 C 73 16 127/63 96 Nasal Cannula 3 Laboratory Results Short CBC 09/27/22 Range/Units 07:30 WBC 6.62 (4.8-10.8) K/ul Hgb 12.7 (12.0-16.0) g/dl Hct 38.1 (34.1-44.9) % Plt Count 169 (130-400) K/uL BMP 09/27/22 07:30 Sodium 133 L Potassium 3.4 L Chloride 100 Carbon Dioxide 27 BUN 12 Creatinine 0.47 L Glucose 111 H Calcium 8.2 L
[2022-09-27] MEDS: PRAVASTATIN SOD 40 MG TAB PO SCH (17:19)
[2022-09-27] MEDS: ACETAMINOPHEN 325 MG TAB PO PRN (19:25)
[2022-09-28 07:07] LABS: BUN Creatinine Ratio 22.2 (10-20); Calcium 8.1 mg/dl (8.5-10.1); Creatinine Clr Calc Pharmacy 89.2 ml/min; Est GFR (African American) 106.6 ml/min; Magnesium 1.6 mg/dl (1.7-2.4); Potassium 3.8 mmol/L (3.5-5.1)
[2022-09-28] MEDS: ALENDRONATE SODIUM 10 MG TAB PO SCH (07:46)
[2022-09-28] MEDS: LOSARTAN POTASSIUM 25 MG TAB PO SCH (08:56)
[2022-09-28] MEDS: APIXABAN 2.5 MG TAB PO SCH ×2 (08:56→20:07)
[2022-09-28] MEDS: guaiFENesin 600 MG TABCR PO SCH ×2 (08:56→20:07)
[2022-09-28] MEDS: DOXYCYCLINE HYCLATE 100 MG CAP PO SCH ×2 (08:56→20:07)
[2022-09-28] MEDS: DONEPEZIL HCL 10 MG TAB PO SCH (08:56)
[2022-09-28] MEDS: TOLTERODINE TARTRATE LA 2 MG CAPCR PO SCH (08:57)
[2022-09-28] MEDS: PANTOprazole 40 MG TAB PO SCH (08:57)
[2022-09-28] MEDS: OSELTAMIVIR PHOSPHATE 75 MG CAP PO SCH ×2 (08:57→20:07)
[2022-09-28] MEDS: SERTRALINE HCL 50 MG TABLET PO SCH (08:57)
[2022-09-28] MEDS: MEMANTINE HCL 10 MG TAB PO SCH (08:57)
[2022-09-28] MEDS ORDERED: MAGNESIUM SULFATE / D5W 1 GM/100 ML BAG IV ONE (09:31)
[2022-09-28] MEDS ORDERED: HYDROCORTISONE 1% CRM 30 GM TUBE EXT PRN (12:53)
[2022-09-28] MEDS: PRAVASTATIN SOD 40 MG TAB PO SCH (17:44)
--- NOTE | 2022-09-28 18:53 | Hospitalist Progress Note ---
Date of Service September 28, 2022 Assessment & Plan (1) Influenza: Plan: Influenza A Hypoxia Possible left basilar Viral pneumonia due to Influenza A CXR:Left basilar airspace opacity suspicious for pneumonia. Radiographic follow- up to ensure resolution is recommended. Normal procalcitonin Continue Tamiflu Also started on doxycycline Continue Mucinex, pulmonary hygiene Aspiration precautions Continue supplemental oxygen as needed Wean off of supplemental oxygen as able Itchy erythematous rash on Back ? Contact dermatitis Cortisone cream as needed Hypertension Continue losartan Monitor Dementia Continue home medications Reorient frequently to minimize delirium Hyperlipidemia On statin GERD on PPI Paroxysmal A. fib On Eliquis DVT prophylaxis On Eliquis CODE STATUS DNI DNR Admission and Anticipated Discharge Date Admission Date: September 25, 2022 Subjective Patient is seen and examined at bedside States feeling better today Reports itchy back Mental status seem to be better today Less cough Denies any chest pain, dizziness, dyspnea, nausea, abdominal pain Review of Systems Review of Systems: All systems reviewed & are unremarkable except as noted in Subjective Physical Exam Physical Exam: Physical Exam: Vitals signs as noted above General Appearance:Moderately built and nourished, no apparent distress, ill appearing Head: normocephalic, Atraumatic Eyes: normal inspection, EOMI Neck: supple, Trachea midline Respiratory/Chest: Coarse breath sounds, CTA, No accessory muscle use Cardiovascular: S1, S2, No murmur Abdomen/GI:Soft, Non tender, Bowel sounds present Extremities/Musculoskeletal:normal inspection, no edema Neurologic/Psych:AAOX3, grossly no focal neurological deficits Skin: normal color, warm Results & Data Results & Data ([facility]) Vital Signs (Past 12 Hours) Vital Signs Temp Pulse Resp BP Pulse Ox O2 Del Method O2 Flow Rate 09/28/22 14:57 36.6 C 58 L 18 159/66 H 94 Nasal Cannula 3 09/28/22 08:22 Nasal Cannula 3 09/28/22 07:35 36.7 C 54 L 16 149/71 H 95 Nasal Cannula 3 Laboratory Results [facility] 09/28/22 05:42 Sodium 135 L Potassium 3.8 Chloride 102 Carbon Dioxide 31 BUN 10 Creatinine 0.45 L Glucose 120 H Calcium 8.1 L
[2022-09-29 00:53] LABS: Appearance Urine Clear (Clear); Bilirubin Urine Negative (Negative); Blood Urine Trace-intact (Negative); Color Urine Yellow; Glucose Urine UA Negative (Negative); Ketones Urine Negative (Negative); Leukocyte Esterase Urine Negative (Negative); Nitrite Urine Negative (Negative); Protein Urine Negative (Negative); Specific Gravity Urine 1.015 (1.000-1.030); Urobilinogen Urine Negative (Negative)
[2022-09-29 01:55] LABS: Epithelial Cell Urine 0-5 /lpf (0-5); RBC Urine 0-4 /hpf (0-4); WBC Urine 0-5 /hpf (0-5)
[2022-09-29 01:56] LABS: Bacteria Urine Negative (Negative); Hyaline Casts Urine 0-5 /lpf (0-5)
[2022-09-29] MEDS: guaiFENesin 600 MG TABCR PO SCH ×2 (08:18→20:44)
[2022-09-29] MEDS: DOXYCYCLINE HYCLATE 100 MG CAP PO SCH ×2 (08:18→20:44)
[2022-09-29] MEDS: SERTRALINE HCL 50 MG TABLET PO SCH (08:18)
[2022-09-29] MEDS: LOSARTAN POTASSIUM 25 MG TAB PO SCH (08:18)
[2022-09-29] MEDS: DONEPEZIL HCL 10 MG TAB PO SCH (08:18)
[2022-09-29] MEDS: OSELTAMIVIR PHOSPHATE 75 MG CAP PO SCH ×2 (08:18→20:44)
[2022-09-29] MEDS: MEMANTINE HCL 10 MG TAB PO SCH (08:18)
[2022-09-29] MEDS: PANTOprazole 40 MG TAB PO SCH (08:18)
[2022-09-29] MEDS: TOLTERODINE TARTRATE LA 2 MG CAPCR PO SCH (08:18)
[2022-09-29] MEDS: APIXABAN 2.5 MG TAB PO SCH ×2 (08:18→20:44)
[2022-09-29] MEDS: ALENDRONATE SODIUM 10 MG TAB PO SCH (08:18)
[2022-09-29] MEDS ORDERED: MAGNESIUM SULFATE / D5W 1 GM/100 ML BAG IV ONE (09:45)
[2022-09-29 11:30] LABS: BUN Creatinine Ratio 18.8 (10-20); Calcium 8.7 mg/dl (8.5-10.1); Creatinine Clr Calc Pharmacy 83.6 ml/min; Est GFR (African American) 104.4 ml/min; Est GFR (Non-African American) 90.1 ml/min; Magnesium 1.9 mg/dl (1.7-2.4); Potassium 3.8 mmol/L (3.5-5.1)
[2022-09-29] MEDS: MAGNESIUM CHLORIDE W/CALCIUM 64MG DELAYED REL TAB PO SCH (12:07)
[2022-09-29] MEDS: PRAVASTATIN SOD 40 MG TAB PO SCH (15:42)
--- NOTE | 2022-09-29 18:04 | Hospitalist Progress Note ---
Date of Service September 29, 2022 Assessment & Plan (1) Influenza: Plan: Influenza A Hypoxia Possible left basilar Viral pneumonia due to Influenza A CXR:Left basilar airspace opacity suspicious for pneumonia. Radiographic follow- up to ensure resolution is recommended. Normal procalcitonin Continue Tamiflu Also started on doxycycline Continue Mucinex, pulmonary hygiene Aspiration precautions Wean off of supplemental oxygen as able Clinically improving May need 2 step prior to discharge Itchy erythematous rash on Back ? Contact dermatitis Cortisone cream as needed Hypomagnesemia Replete electrolytes as needed Monitor Hypertension Continue losartan Monitor Dementia Continue home medications Reorient frequently to minimize delirium Hyperlipidemia On statin GERD on PPI Paroxysmal A. fib On Eliquis DVT prophylaxis On Eliquis CODE STATUS DNI DNR Admission and Anticipated Discharge Date Admission Date: September 25, 2022 Subjective Patient is seen and examined at bedside Doing well today Having lunch during my encounter Cough much improved Denies any chest pain, dizziness, dyspnea, nausea, abdominal pain No other complaints Review of Systems Review of Systems: All systems reviewed & are unremarkable except as noted in Subjective Physical Exam Physical Exam: Physical Exam: Vitals signs as noted above General Appearance:Moderately built and nourished, no apparent distress, ill appearing Head: normocephalic, Atraumatic Eyes: normal inspection, EOMI Neck: supple, Trachea midline Respiratory/Chest: Decrease coarse breath sounds, CTA, No accessory muscle use Cardiovascular: S1, S2, No murmur Abdomen/GI:Soft, Non tender, Bowel sounds present Extremities/Musculoskeletal:normal inspection, no edema Neurologic/Psych:AAOX3, grossly no focal neurological deficits Skin: normal color, warm Results & Data Results & Data ([facility]) Vital Signs (Past 12 Hours) Vital Signs Temp Pulse Resp BP Pulse Ox Pulse Ox Pulse Ox 09/29/22 15:18 36.5 C 60 16 127/75 100 09/29/22 11:35 97 96 09/29/22 06:40 36.7 C 68 18 151/79 H 94 Pulse Ox O2 Del Method O2 Flow Rate O2 Flow Rate O2 Flow Rate O2 Flow Rate 09/29/22 15:18 Nasal Cannula 3 09/29/22 11:35 97 3 3 3 09/29/22 06:40 Nasal Cannula 3 Laboratory Results [facility] 09/29/22 10:31 Sodium 135 L Potassium 3.8 Chloride 102 Carbon Dioxide 26 BUN 9 Creatinine 0.48 L Glucose 138 H Calcium 8.7 Urine 09/29/22 Range/Units 00:15 Urine Color Yellow Urine Appearance Clear (Clear) Urine pH 7.0 (4.5-7.5) Ur Specific [place] 1.015 (1.000-1.030) Urine Protein Negative (Negative) Urine Glucose (UA) Negative (Negative)
[2022-09-29] MEDS ORDERED: LORATADINE 10 MG TAB PO ONE (21:30)
[2022-09-30 08:55] LABS: Hematocrit (blood only) 38.4 % (34.1-44.9); Hemoglobin 13.1 g/dl (12.0-16.0); Mean Corpuscular Hemoglobin 29.5 pg (25.0-34.0); Mean Corpuscular Hgb Conc 34.1 g/dL (32.0-36.0); Mean Corpuscular Volume 86.5 fL (80.0-100.0); Mean Platelet Volume 9.6 fL (9.4-12.3); Platelet Count 203 K/uL (130-400); Red Blood Count 4.44 M/uL (3.93-5.22); White Blood Count 5.02 K/ul (4.8-10.8)
[2022-09-30] MEDS ORDERED: MAGNESIUM CHLORIDE W/CALCIUM 64MG DELAYED REL TAB PO SCH (09:00)
[2022-09-30 09:17] LABS: BUN Creatinine Ratio 22.4 (10-20); Calcium 8.5 mg/dl (8.5-10.1); Creatinine Clr Calc Pharmacy 81.9 ml/min; Est GFR (African American) 103.7 ml/min; Est GFR (Non-African American) 89.5 ml/min; Magnesium 1.8 mg/dl (1.7-2.4); Potassium 3.7 mmol/L (3.5-5.1)
[2022-09-30] MEDS: ALENDRONATE SODIUM 10 MG TAB PO SCH (09:17)
[2022-09-30] MEDS: TOLTERODINE TARTRATE LA 2 MG CAPCR PO SCH (09:17)
[2022-09-30] MEDS: MEMANTINE HCL 10 MG TAB PO SCH (09:17)
[2022-09-30] MEDS: DONEPEZIL HCL 10 MG TAB PO SCH (09:17)
[2022-09-30] MEDS: SERTRALINE HCL 50 MG TABLET PO SCH (09:17)
[2022-09-30] MEDS: LOSARTAN POTASSIUM 25 MG TAB PO SCH (09:17)
[2022-09-30] MEDS: MAGNESIUM CHLORIDE W/CALCIUM 64MG DELAYED REL TAB PO SCH (09:17)
[2022-09-30] MEDS: PANTOprazole 40 MG TAB PO SCH (09:17)
[2022-09-30] MEDS: APIXABAN 2.5 MG TAB PO SCH ×2 (09:18→20:20)
[2022-09-30] MEDS: OSELTAMIVIR PHOSPHATE 75 MG CAP PO SCH (09:18)
[2022-09-30] MEDS: guaiFENesin 600 MG TABCR PO SCH ×2 (09:18→20:19)
[2022-09-30] MEDS: DOXYCYCLINE HYCLATE 100 MG CAP PO SCH ×2 (09:18→20:19)
--- NOTE | 2022-09-30 12:43 | Hospitalist Progress Note ---
Date of Service September 30, 2022 Assessment & Plan (1) Influenza: Plan: Influenza A Hypoxia Possible left basilar Viral pneumonia due to Influenza A CXR:Left basilar airspace opacity suspicious for pneumonia. Radiographic follow- up to ensure resolution is recommended. Normal procalcitonin Continue Tamiflu - last day today Also started on doxycycline - last day today Continue Mucinex, pulmonary hygiene Aspiration precautions Wean off of supplemental oxygen as able - off at rest - unable to fully perform 2-step but did not desat below 93% with activity with respiratory Clinically improving Itchy erythematous rash on Back ? Contact dermatitis Cortisone cream BID for 1 week to monitor for improvement Hypomagnesemia Replete electrolytes as needed Monitor Hypertension Continue losartan Monitor Dementia Continue home medications Reorient frequently to minimize delirium Hyperlipidemia On statin GERD on PPI Paroxysmal A. fib On Eliquis DVT prophylaxis On Eliquis CODE STATUS DNI DNR Admission and Anticipated Discharge Date Admission Date: September 25, 2022 Subjective Patient with HTN, HLD, a fib on eliquis, dmentia, GERD presented with fatigue, shortness of breath with hypoxia, found to have influenza A infection. Started on Tamiflu and supportive care with improvement. Oxygen was weaned off. Patient feels ok, still not feeling great. Denies shortness of breath, fever or chills, n/v/d, abdominal pain, dysuria. Still with cough intermittently productive of sputum. Review of Systems Review of Systems: All systems reviewed & are unremarkable except as noted in Subjective Physical Exam Physical Exam: General Appearance:Moderately built and nourished, no apparent distress Head: normocephalic, Atraumatic Eyes: normal inspection, EOMI Neck: supple, Trachea midline Respiratory/Chest: Decrease coarse breath sounds, CTA, No accessory muscle use Cardiovascular: S1, S2, No murmur Abdomen/GI:Soft, Non tender, Bowel sounds present Extremities/Musculoskeletal:normal inspection, no edema Neurologic/Psych:AAOX3, grossly no focal neurological deficits Skin: normal color, warm, rash with small papules with some excoriations, no drainage or surrounding erythema. Results & Data Results & Data ([facility]) Vital Signs (Past 12 Hours) Vital Signs Temp Pulse Pulse Resp Resp BP Pulse Ox 09/30/22 10:00 09/30/22 12:02 60 16 09/30/22 07:01 36.6 C 60 16 152/71 H 97 Pulse Ox O2 Del Method O2 Flow Rate 09/30/22 10:00 Nasal Cannula 3 09/30/22 12:02 95 09/30/22 07:01 Nasal Cannula 3 Diagnostic Findings Laboratory Results WBC 5.02 K/ul (4.8-10.8) 09/30/22 08:41 RBC 4.44 M/uL (3.93-5.22) 09/30/22 08:41 Hgb 13.1 g/dl (12.0-16.0) 09/30/22 08:41 Hct 38.4 % (34.1-44.9) 09/30/22 08:41 MCV 86.5 fL (80.0-100.0) 09/30/22 08:41 MCH 29.5 pg (25.0-34.0) 09/30/22 08:41 MCHC 34.1 g/dL (32.0-36.0) 09/30/22 08:41 RDW Std Deviation 41.0 fL (36.4-46.3) 09/30/22 08:41 RDW Coeff of Kim 13.0 % (11.5-14.5) 09/30/22 08:41 Plt Count 203 K/uL (130-400) 09/30/22 08:41 MPV 9.6 fL (9.4-12.3) 09/30/22 08:41 Immature Gran % (Auto) 0.5 % 09/25/22 04:40 Neut % (Auto) 80.3 % 09/25/22 04:40 Lymph % (Auto) 8.4 % 09/25/22 04:40 [place] % (Auto) 9.6 % 09/25/22 04:40 Eos % (Auto) 1.0 % 09/25/22 04:40 Baso % (Auto) 0.2 % 09/25/22 04:40 Neut # (Auto) 4.78 K/uL (1.4-6.5) 09/25/22 04:40 Lymph # (Auto) 0.50 K/uL (1.2-3.4) L 09/25/22 04:40 [place] # (Auto) 0.57 K/uL (0.24-0.82) 09/25/22 04:40 Eos # (Auto) 0.06 K/uL (0-0.50) 09/25/22 04:40 Baso # (Auto) 0.01 K/uL (0-0.2) 09/25/22 04:40 Immature Gran # (Auto) 0.03 K/uL (0.00-0.02) H 09/25/22 04:40 Sodium 135 mmol/L (136-145) L 09/30/22 08:41 Potassium 3.7 mmol/L (3.5-5.1) 09/30/22 08:41 Chloride 102 mmol/L (98-107) 09/30/22 08:41 Carbon Dioxide 29 mmol/L (21-32) 09/30/22 08:41 Anion Gap 4 (3-11) 09/30/22 08:41 BUN 11 mg/dl (6-23) 09/30/22 08:41 Creatinine 0.49 mg/dl (0.6-1.2) L 09/30/22 08:41 Est Cr Clr Drug Dosing 81.9 ml/min 09/30/22 08:41 Est GFR ( Amer) 103.7 ml/min 09/30/22 08:41 Est GFR (Non-Af Amer) 89.5 ml/min 09/30/22 08:41 BUN/Creatinine Ratio 22.4 (10-20) H 09/30/22 08:41 Glucose 129 mg/dl (70-99(Fasting)) H 09/30/22 08:41 Lactate 0.7 mmol/L (0.4-2.0) 09/25/22 04:40 Calcium 8.5 mg/dl (8.5-10.1) 09/30/22 08:41 Magnesium 1.8 mg/dl (1.7-2.4) 09/30/22 08:41 Total Bilirubin 0.4 mg/dl (0.2-1.0) 09/25/22 04:40 Direct Bilirubin 0.0 mg/dl (0-0.2) 09/25/22 06:04 AST 24 U/L (13-39) 09/25/22 06:04 ALT 19 U/L (7-52) 09/25/22 04:40 Alkaline Phosphatase 59 U/L (34-104) 09/25/22 04:40 Troponin I High Sens 17.7 pg/ml (0-14) H 09/25/22 09:29 Total Protein 6.1 gm/dl (6.0-8.3) 09/25/22 04:40 Albumin 3.7 gm/dl (3.4-5.0) 09/25/22 04:40 Procalcitonin 0.05 ng/ml (0-0.5) 09/27/22 07:30 Urine Color Yellow 09/29/22 00:15 Urine Appearance Clear (Clear) 09/29/22 00:15 Urine pH 7.0 (4.5-7.5) 09/29/22 00:15 Ur Specific [place] 1.015 (1.000-1.030) 09/29/22 00:15 Urine Protein Negative (Negative) 09/29/22 00:15 Urine Glucose (UA) Negative (Negative) 09/29/22 00:15 Urine Ketones Negative (Negative) 09/29/22 00:15 Urine Blood Trace-intact (Negative) H 09/29/22 00:15 Urine Nitrite Negative (Negative) 09/29/22 00:15 Urine Bilirubin Negative (Negative) 09/29/22 00:15 Urine Urobilinogen Negative (Negative) 09/29/22 00:15 Ur Leukocyte Esterase Negative (Negative) 09/29/22 00:15 Urine RBC 0-4 /hpf (0-4) 09/29/22 00:15 Urine WBC 0-5 /hpf (0-5) 09/29/22 00:15 Ur Epithelial Cells 0-5 /lpf (0-5) 09/29/22 00:15 Urine Bacteria Negative (Negative) 09/29/22 00:15 Hyaline Casts 0-5 /lpf (0-5) 09/29/22 00:15 SARS-CoV-2 (PCR) NEGATIVE (Negative) 09/25/22 04:40 Influenza Type A (PCR) Positive (Neg) A* 09/25/22 04:40 Influenza Type B (PCR) Negative (Neg) 09/25/22 04:40 RSV (RT-PCR) Negative (Neg) 09/25/22 04:40 Impressions Chest X-Ray 09/25/22 04:38 XR chest 1V portable CLINICAL HISTORY: Sepsis. COMPARISON STUDY: No previous studies for comparison. FINDINGS: Left subclavian pacer and left axillary surgical clips are incidentally noted. 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 Patient is rotated. No pneumothorax or pleural effusion is present. Cardiac size is within normal limits. There is no evidence for pulmonary edema. Left basilar airspace opacity is present. No airspace opacities within the right lung is present. Extensive atherosclerotic plaque of the aortic arch. IMPRESSION: Left basilar airspace opacity suspicious for pneumonia. Radiographic follow-up to ensure resolution is recommended. ACT 112: Negative or not required by law. Electronically signed by: Joe Vivas M.D. 09/25/2022 6:[address] 09/25/22 06:02 CT OF THE HEAD WITHOUT CONTRAST CLINICAL HISTORY: Confusion. COMPARISON STUDY: No previous studies for comparison. CT DOSE: 614.27 mGy.cm TECHNIQUE: Helical axial images of the head were obtained without IV contrast. Automated exposure control was utilized for the study. A dose lowering technique was utilized adhering to the principles of ALARA. FINDINGS: No acute intracranial hemorrhage, midline shift or mass effect is present. There is moderate dilatation of the lateral ventricles. There is mild dilatation of the third and fourth ventricles. Basal cisterns are patent. No extra-axial fluid collections are present. 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 White matter hypodensities statistically reflect small vessel disease. There are no findings to suggest acute dural sinus thrombosis or acute territorial infarct. There is no acute calvarial fracture. Minimal sinus mucosal thickening is present. Suspected old defect within the left orbital floor is noted. Degenerative changes of the temporomandibular joints are present. IMPRESSION: 1. No acute intracranial hemorrhage. 2. Moderate dilatation of the lateral ventricles. This is likely due to atrophy. Normal pressure hydrocephalus could appear similar but is considered less likely. 3. 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 ACT 112: Negative or not required by law. Electronically signed by: Joe Vivas M.D. 09/25/2022 6:46 AM Medications Administered Current Inpatient Medications Acetaminophen (Acetaminophen 325 Mg Tab) 650 mg PO Q4H PRN PRN Reason: pain/fever Stop: 10/25/22 08:00 Last Admin: 09/27/22 19:25 Dose: 650 mg Alendronate Sodium ([facility]ron[facility] Sodium 10 Mg Tab) [facility] Stop: 10/26/22 08:59 Last Admin: 09/30/22 09:17 Dose: 10 mg Apixaban (Apixaban 2.5 Mg Tab) 2.5 mg PO BID [facility] Stop: 10/25/22 10:44 Last Admin: 09/30/22 09:18 Dose: 2.5 mg Benzonatate (Benzonatate 100 Mg Capsule) 100 mg PO TID PRN PRN Reason: cough Stop: 10/25/22 08:00 Docusate Sodium (Docusate Sodium 100 Mg Cap) 100 mg PO BID PRN PRN Reason: Constipation Stop: 10/25/22 08:00 Donepezil HCl (Donepezil Hcl 10 Mg Tab) [facility] Stop: 10/25/22 10:44 Last Admin: 09/30/22 09:17 Dose: 10 mg Doxycycline Hyclate (Doxycycline Hyclate 100 Mg Cap) 100 mg PO BID [facility] Stop: 10/03/22 13:59 Last Admin: 09/30/22 09:18 Dose: 100 mg Guaifenesin (Guaifenesin 600 Mg Tabcr) 600 mg PO Q12 [facility] Stop: 10/26/22 20:59 Last Admin: 09/30/22 09:18 Dose: 600 mg Hydrocortisone (Hydrocortisone 1% Crm 30 Gm Tube) 1 appln EXT BID [facility] Stop: 10/07/22 12:44 Losartan Potassium (Losartan Potassium 25 Mg Tab) 25 [facility] Stop: 10/25/22 10:44 Last Admin: 09/30/22 09:17 Dose: 25 mg Magnesium Chloride (Magnesium Chloride W/Calcium 64mg Delayed Rel Tab) 64 mg [facility] Stop: 10/29/22 09:49 Last Admin: 09/30/22 09:17 Dose: 64 mg Memantine (Memantine Hcl 10 Mg Tab) 10 mg PO [facility] Stop: 10/25/22 10:44 Last Admin: 09/30/22 09:17 Dose: 10 mg Ondansetron HCl (Ondansetron Inj 2 Mg/Ml 2 Ml Vial) 4 mg IV Q6H PRN PRN Reason: Nausea Stop: 10/25/22 08:00 Pantoprazole Sodium (Pantoprazole 40 Mg Tab) 40 mg PO [facility] Stop: 10/25/22 10:44 Last Admin: 09/30/22 09:17 Dose: 40 mg Pravastatin Sodium (Pravastatin Sod 40 Mg Tab) 80 mg PO DAILY@1700 [facility] Stop: 10/25/22 16:59 Last Admin: 09/29/22 15:42 Dose: 80 mg Sertraline HCl (Sertraline Hcl 50 Mg Tablet) 50 mg PO [facility] Stop: 10/25/22 10:44 Last Admin: 09/30/22 09:17 Dose: 50 mg Tolterodine Tartrate (Tolterodine Tartrate La 2 Mg Capcr) 2 mg PO [facility] Stop: 10/25/22 10:44 Last Admin: 09/30/22 09:17 Dose: 2 mg
[2022-09-30] MEDS: HYDROCORTISONE 1% CRM 30 GM TUBE EXT SCH ×2 (15:21→20:20)
[2022-09-30] MEDS: PRAVASTATIN SOD 40 MG TAB PO SCH (17:43)
[2022-09-30] MEDS: ACETAMINOPHEN 325 MG TAB PO PRN (19:35)
[2022-10-01] MEDS ORDERED: LOSARTAN POTASSIUM 50 MG TAB PO SCH (06:30)
[2022-10-01] MEDS: MEMANTINE HCL 10 MG TAB PO SCH (07:50)
[2022-10-01] MEDS: ALENDRONATE SODIUM 10 MG TAB PO SCH (07:50)
[2022-10-01] MEDS: DONEPEZIL HCL 10 MG TAB PO SCH (07:50)
[2022-10-01] MEDS: guaiFENesin 600 MG TABCR PO SCH (07:51)
[2022-10-01] MEDS: PANTOprazole 40 MG TAB PO SCH (07:51)
[2022-10-01] MEDS: MAGNESIUM CHLORIDE W/CALCIUM 64MG DELAYED REL TAB PO SCH (07:51)
[2022-10-01] MEDS: APIXABAN 2.5 MG TAB PO SCH (07:51)
[2022-10-01] MEDS: DOXYCYCLINE HYCLATE 100 MG CAP PO SCH (07:51)
[2022-10-01] MEDS: TOLTERODINE TARTRATE LA 2 MG CAPCR PO SCH (07:51)
[2022-10-01] MEDS: SERTRALINE HCL 50 MG TABLET PO SCH (07:51)
[2022-10-01] MEDS: HYDROCORTISONE 1% CRM 30 GM TUBE EXT SCH (07:52)
--- NOTE | 2022-10-01 11:38 | Discharge Summary ---
Date of Service October 01, 2022 Admission HPI Per Admitting Provider This is a 86 year old female with a past medical history of HTN, HLD, A Fib on Eliquis, Dementia, GERD, osteoporosis who presented to [facility] via EMS from [facility] today with complaints of increasing lethargy, cough and was found to be saturating at 85% on RA when EMS arrived. Patient has had no prior history of SOB, asthma, or COPD. Patient has never had to use oxygen and no history of SOLANGE. Per history from the [facility], patient had increasing fatigue and coughing. There were several other residents at the home with Influenza. Patient has no history of tobacco abuse. Patient denies any abdominal pain, nausea, vomiting, chest pain or dyspnea. EMS notes stated she improved after applying 4L NC oxygen. Currently patient is on 2L [place] oxygen and saturating at 98%. She is not SOB and in NAD. She is able to speak in complete sentences without difficulty. Patient was also given a 500mL bolus of fluids in route. Currently patient tells me she is feeling much better. EKG revealed NSR, incomplete right BBB, possible Inferior infarct, age undetermined Mildly elevated troponin of 14.7 No previous EKGs to compare Patient denies any dyspnea or Chest Pain Repeat Troponin level and also Echo Patient has a hx of Dementia but she is Alert and Oriented x 3 and discussed code status with patient and she stated she would not want any chest compressions, CPR or intubation. She wished to be DNR/DNI I also spoke with patient's daughter Katarina via the phone who advised that her mother is DNR/DNI code status. Admission Exam Per Admitting Provider Constitutional: well developed, well nourished and average body habitus; not diaphoretic ENMT: external ear and nose normal, oropharynx normal Neck: trachea midline, no thyromegaly Respiratory: normal respiratory effort, + cough, able to speak in complete sentences and symmetric chest movement; no labored breathing Cardiovascular: Rate/Rhythm: regular rate and regular rhythm Extremities: + edema; no calf tenderness Gastrointestinal (Abdomen): normal bowel sounds, soft, nontender, no hepatosplenomegaly Psychiatric: A+Ox3, euthymic affect Principal Diagnosis Influenza pneumonia Discharge Exam General Appearance:Moderately built and nourished, no apparent distress Head: normocephalic, Atraumatic Eyes: normal inspection, EOMI Neck: supple, Trachea midline Respiratory/Chest: Decrease coarse breath sounds, CTA, No accessory muscle use Cardiovascular: S1, S2, No murmur Abdomen/GI:Soft, Non tender, Bowel sounds present Extremities/Musculoskeletal:normal inspection, no edema Neurologic/Psych:AAOX3, grossly no focal neurological deficits Skin: normal color, warm, rash with small papules with some excoriations, no drainage or surrounding erythema. Discharge Data Allergies Allergy/AdvReac Type Severity Reaction Status Date / Time Sulfa (Sulfonamide Allergy Unknown Unknown Verified 09/25/22 10:22 Antibiotics) Consultations 09/25/22 07:34 ED Decision to Admit Stat Ordered Studies 09/25/22 06:02 CT head/brain wo con Stat Hospital Course (1) Influenza: Influenza A Hypoxia Possible left basilar Viral pneumonia due to Influenza A CXR:Left basilar airspace opacity suspicious for pneumonia. Radiographic follow- up to ensure resolution is recommended. Normal procalcitonin Continue Tamiflu - last day today Also started on doxycycline - last day today Continue Mucinex, pulmonary hygiene Aspiration precautions Wean off of supplemental oxygen as able - off at rest - unable to fully perform 2-step but did not desat below 93% with activity with respiratory Clinically improved and ok for discharge Itchy erythematous rash on Back ? Contact dermatitis Cortisone cream BID for 10 days to monitor for improvement Hypertension Continue losartan Monitor Dementia Continue home medications Reorient frequently to minimize delirium Hyperlipidemia On statin GERD on PPI Paroxysmal A. fib On Eliquis DVT prophylaxis On Eliquis CODE STATUS DNI DNR Total Time Total Time Spent Total Time Spent (In Minutes): 25 Total Time Includes: Examination of the Patient, Discharge Planning and Medication Reconciliation Discharge Plan Discharge Items Patient Disposition: Personal Halfway Reason For Visit: INFLUENZA - FEVER, COUGH, HYPOXIA Discharge Diagnosis: Influenza Activity: Resume your previous activity Non-emergency contact: Primary Care Provider Call non-emergency contact if: you have any medication questions and your symptoms worsen Follow-up/Referrals: [facility] [Primary Care Provider] - Diet: Heart Healthy Addtl Attending Provider Instructions: You were admitted for shortness of breath and low oxygen, found to have the flu (influenza) infection. You were given Tamiflu and supportive are with improvement in your symptoms. You appetite and oxygenation improved and you do not need oxygen on discharge. You should follow up with your primary care doctor on discharge. Pending Studies at Discharge: No Stand-Alone Forms: My [facility] [employer], Smoking Cessation Skilled Items Patient informed of condition?: Yes DNR: Yes Discharge Level of Care: Other Communicable Disease: Yes (influenza - post treatment) Discharge Prognosis: Stable Lines: None Urinary Catheter: No Medications and DC Order Prescriptions: New hydrocortisone 1 % Ointment 1 applic EXT BID Qty: 28.35 0RF Rx Instructions: to upper back BID for 10 days Continued tolterodine 2 mg capsule,extended release 24hr 2 mg PO DAILY alendronate 10 mg tablet 10 mg PO DAILY esomeprazole magnesium 40 mg capsule,delayed release(DR/EC) 40 mg PO QAM hydroxyzine HCl 25 mg tablet 25 mg PO HS sertraline 50 mg tablet 50 mg PO DAILY Rx Instructions: for depression take 75mg po prn Eliquis 2.5 mg tablet 2.5 mg PO DAILY donepezil 10 mg tablet 10 mg PO HS pravastatin 80 mg tablet 80 mg PO DAILY losartan 25 mg tablet 25 mg PO DAILY sertraline 25 mg tablet 25 mg PO USEASDIRECTD PRN (Reason: depression) Rx Instructions: use with 50mg tab for total 75mg po for depression memantine 10 mg tablet 10 mg PO BID acetaminophen [Tylenol] 325 mg Capsule 650 mg PO QID PRN (Reason: Fever Or Pain) dextromethorphan polistirex [Delsym 12 hour] 30 mg/5 mL Suspension,Extended Rel 12 Hr 10 ml PO Q12H PRN (Reason: Cough) lidocaine [Lidocaine Pain Relief] 4 % Adhesive Patch,Medicated 1 patch TOPICAL DAILY PRN (Reason: pain) Rx Instructions: rib pain use acetaminophen [Tylenol Ex Str Rapid Release] 500 mg Tablet 500 mg PO TID MDD 3gm PRN (Reason: Fever Or Pain) docusate sodium 100 mg Capsule 100 mg PO HS Certa-Nav Tablet 1 tab PO DAILY Rx Instructions: supplement calcium carbonate-vitamin D3 [Calcium 600 + D(3)] 600 mg-10 mcg (400 unit) Tablet 1 tab PO TID vit D3-folic [id number] 2,000-800-0.32 unit-mcg-mg Tablet 1 tab PO DAILY Rx Instructions: supplement hydrocortisone See Rx Instructions .ROUTE .COMPLEX Rx Instructions: for lesion on right ankle bid until clear Discharge Orders: Discharge Order (Routine); Ordered 10/01/22 Ordered By: Cristiano Prieto Admission Data Admit Date/Time: 09/25/22 06:59 Attending Provider: Cristiano Prieto Admit Provider: Genevieve Saunders Primary Care Provider: Rich Aviles,[facility] Other Providers: Genevieve Saunders
== END 2022-10-01 16:45 | disposition home or self-care (01) | DRG 195 ==
LOC: ED 04:26 → SUATTDRO 06:59 → EDINP 06:59 → 3W 07:59

== ENCOUNTER 2023-05-12 10:53 | Inpatient (IN) ==
[2023-05-12] MEDS ORDERED: dexAMETHasone**PF** 10 MG/ML VIAL IV ONE (11:29)
[2023-05-12 11:51] LABS: Basophils # (auto) 0.01 K/uL (0-0.2); Basophils % (auto) 0.2 %; Eosinophils # (auto) 0.07 K/uL (0-0.50); Eosinophils % (auto) 1.2 %; Hematocrit (blood only) 44.2 % (37.0-47.0); Hemoglobin 14.6 g/dl (12.0-16.0); Immature Granulocytes # (auto) 0.02 K/uL (0.01-0.20); Immature Granulocytes % (auto) 0.3 %; Lymphocytes # (auto) 2.02 K/uL (1.2-3.4); Lymphocytes % (auto) 34.6 %; Mean Corpuscular Hemoglobin 28.8 pg (25.0-34.0); Mean Corpuscular Volume 87.2 fL (80.0-100.0); Mean Platelet Volume 10.6 fL (9.4-12.4); Monocytes # (auto) 0.61 K/uL (0.11-0.59); Monocytes % (auto) 10.5 %; Neutrophils % (auto) 53.2 %; Platelet Count 192 K/uL (130-400); RDW Coefficient of Variation 14.2 % (11.5-14.5); RDW Standard Deviation 45.1 fL (36.4-46.3); Red Blood Count 5.07 M/uL (4.20-5.40); White Blood Count 5.83 K/ul (4.8-10.8)
--- NOTE | 2023-05-12 11:57 | Emergency Department Note ---
Impression & Plan Hypoxia, Dementia, COVID-19, Syncope, Acute UTI ED Provider Note Provider: Jignesh Sosa MD DATE OF SERVICE: 05/12/2023 CHIEF COMPLAINT: Near syncope HISTORY OF PRESENT ILLNESS: Patient is a 87-year-old female past medical history including dementia, GERD, hypertension, and A-fib on Eliquis presenting here today after near syncopal event at [facility]. Patient evidently was diagnosed with COVID on Wednesday and started Paxlovid. Patient states she has had some cough and cold. Went to have a bowel movement today and evidently while there patient became marques diaphoretic and went unresponsive. Patient herself does not remember this really well. Patient had her last dose of Eliquis 2 days ago. Patient herself denies significant pain on my evaluation. Again is not the best historian. Denies nausea vomiting. Denies abdominal pain. Denying chest pain to me. Noted by nursing to be hypoxic on room air to the 80s and placed on oxygen which from records does not appear that she is normally on. Patient to me denies any history of syncope. PAST MEDICAL HISTORY: As noted above MEDICATIONS: Reviewed home medications. Recently on Paxlovid and normally takes Eliquis. SOCIAL HISTORY: Resides at [facility] PHYSICAL EXAM: GENERAL: alert and oriented to person in no acute distress on stretcher but not a great historian with the events of today Head: normocephalic and atraumatic EYES: No injection, discharge or icterus. PERRL, EOMI. NECK: Trachea midline. Supple without tenderness ENT: Mucous membranes pink and moist. LUNGS: Airway patent. No retractions. Breath sounds clear HEART: Regular rate and rhythm. No chest wall tenderness with a prominent right breast (reported reconstruction with prior history of cancer here.) As well as a left upper pacemaker noted. ABDOMEN: Soft and non-tender, without guarding or rebound. SKIN: Acyanotic, warm, dry, without rashes EXTREMITIES: Without swelling, tenderness or deformity NEUROLOGICAL: No focal deficits moving all extremities. No aphasia. No facial droop or slurred speech. Normal strength and tone in the extremities. Sensation to gross touch normal. EKG: Atrially paced rhythm with PAC rate 67 bpm. Left axis noted without clear acute ST segment elevation or depression. QTc 431. CONTINUOUS CARDIAC MONITORING: was ordered and showed a heart rate of 60s bpm in atrially paced rhythm with occasional PVC Patient's laboratory studies and imaging reviewed. Differential includes Infection, dehydration, metabolic abnormality, hypo/hyperglycemia, electrolyte disturbance, anemia, hypoxia, cardiac sources, intracerebral event, neurologic, as well as other pathologies. IMPRESSION/MEDICAL DECISION MAKING: Patient is a historian with her history of dementia but recently positive for COVID. Had a syncopal type event today. Noted to be somewhat hypoxic on room air and placed on oxygen supplementation which is new. Low suspicion for VTE given her normal usage of Eliquis. No significant trauma reported no evidence of trauma on her person. We will complete a CT of the head given the reported syncopal event and her use of blood thinners however. Given the hypoxia and reported COVID given a dose of dexamethasone here. Records here indicate the sindy muñoz did receive COVID vaccines in the past and September 2021 and July 2022. Pacemaker interrogation ordered. Blood work without significant anemia or leukocytosis. Chest x-ray reviewed as well as report without clear findings of pneumonia noted. Doubt bacterial component given the positive COVID status and her lack of leukocytosis. Believe likely virally related hypoxia from the COVID. Troponin normal. No significant renal dysfunction or electrolyte findings noted. Again with hypoxia as well as a syncopal event today will bring into the hospital for further evaluation. Urinalysis concerning for infection covered with ceftriaxone. DIAGNOSIS: COVID-19, hypoxia, syncope, UTI DISPOSITION: Hospitalist will evaluate Past Med/Surg History Medical History A-fib Dementia GERD (gastroesophageal reflux disease) History of breast cancer HTN (hypertension) Hyperlipidemia Influenza A Osteoporosis Pacemaker Sick sinus syndrome Surgical History H/O mastectomy Social History Smoking Status: Never smoker Second Hand Exposure: No; Do You Dip or Chew Tobacco: No; Hx Alcohol Use: No Hx Substance Use: No Preferred Language: Citizen Of [place] Communication Ability: Effective Radio Assembler Required: No Beliefs That Will Affect Care: None Current Living Situation: Shelter Feels Safe at Home: Yes Assistive Devices: Wheelchair Allergies Allergies Allergy/AdvReac Type Severity Reaction Status Date / Time Sulfa (Sulfonamide Allergy Unknown ON [place] Verified 05/12/23 12:31 Antibiotics) [facility] MED LIST Home Meds Home Medications Medication Instructions Recorded Confirmed acetaminophen 500 mg tablet 1,000 mg PO TID 09/25/22 05/12/23 alendronate 10 mg tablet 10 mg PO DAILY 09/25/22 05/12/23 apixaban 2.5 mg tablet (Eliquis) 2.5 mg PO BID 09/25/22 05/12/23 donepezil 10 mg tablet 10 mg PO HS 09/25/22 05/12/23 esomeprazole magnesium 40 mg 40 mg PO QAM 09/25/22 05/12/23 capsule,delayed release hydroxyzine HCl 25 mg tablet 25 mg PO HS 09/25/22 05/12/23 lidocaine 4 % topical patch 1 patch topical DAILY PRN pain 09/25/22 05/12/23 (Lidocaine Pain Relief) losartan 25 mg tablet 25 mg PO DAILY 09/25/22 05/12/23 memantine 10 mg tablet 10 mg PO BID 09/25/22 05/12/23 pravastatin 80 mg tablet 80 mg PO DAILY 09/25/22 05/12/23 tolterodine 2 mg capsule,extended 2 mg PO DAILY 09/25/22 05/12/23 release 24 hr calcium carbonate 600 mg-vitamin 1 tab PO TIDM 12/16/22 05/12/23 D3 10 mcg (400 unit) tablet (Calcium 600 + D(3)) docusate sodium 100 mg capsule 100 mg PO HS 12/16/22 05/12/23 cetirizine 10 mg tablet (Zyrtec) 10 mg PO DAILY 03/12/23 05/12/23 cholecalciferol (vitamin D3) 50 50 mcg PO DAILY 03/12/23 05/12/23 mcg (2,000 unit) capsule (Vitamin D3) dextromethorphan polistirex 30 10 ml PO Q12H PRN Cough 03/12/23 05/12/23 mg/5 mL oral susp ext.release 12hr (Delsym 12 hour) geriatric [id number] 1 tab PO DAILY 03/12/23 05/12/23 hydrocortisone 1 % topical cream 1 applic topical BID PRN AFFECTED 03/12/23 05/12/23 AREA hydroxyzine HCl 25 mg tablet 25 mg PO DAILY PRN ALLERGIES 05/19/23 07/19/23 lorazepam 0.5 mg tablet 0.5 mg PO BID PRN Anxiety 03/12/23 05/12/23 nystatin 100,000 unit/gram topical 1 applic topical DAILY PRN 03/12/23 05/12/23 cream NEEDED FOR YEAST sertraline 100 mg tablet 100 mg PO DAILY 03/12/23 05/12/23 Paxlovid 4 tabs PO DIRECTED 05/12/23 05/12/23 betamethasone dipropionate 0.05 % 1 applic topical BID PRN Itching 05/12/23 05/12/23 topical cream Previous Rx's Medication Instructions Recorded diphenhydramine HCl 25 mg capsule 25 mg PO Q8H PRN itching #30 caps 11/24/22 (Benadryl) Results & Data (ED) Vital Signs Vital Signs - 24 hr 05/12/23 11:14 05/12/23 11:14 05/12/23 11:20 Temperature 36.9 C 36.9 C Temperature Source Oral Oral Pulse Rate 75 Pulse Rate from SpO2 Sensor Respiratory Rate 15 15 Blood Pressure 123/62 Blood Pressure Mean 82 Pulse Oximetry 87 L 99 99 Oxygen Delivery Method Room Air Nasal Cannula Nasal Cannula Oxygen Flow Rate 0 2 2 Sepsis Recent Fever Within 48 Hours No Sepsis New/Unexplained Change in Mental Status N/A Sepsis Action Taken by Nursing No Action Required Oxygen Flow Rate - Titration 2 Pulse Oximetry Post Tiitration 99 05/12/23 11:55 05/12/23 12:00 05/12/23 11:14 Temperature Temperature Source Pulse Rate 67 67 Pulse Rate from SpO2 Sensor 56 L Respiratory Rate 18 Blood Pressure Blood Pressure Mean Pulse Oximetry 97 98 Oxygen Delivery Method Nasal Cannula Oxygen Flow Rate 2 Sepsis Recent Fever Within 48 Hours Sepsis New/Unexplained Change in Mental Status Sepsis Action Taken by Nursing Oxygen Flow Rate - Titration Pulse Oximetry Post Tiitration 05/12/23 11:20 05/12/23 11:30 05/12/23 11:30 Temperature Temperature Source Pulse Rate 67 62 Pulse Rate from SpO2 Sensor 57 L 63 Respiratory Rate 17 16 Blood Pressure 117/47 L Blood Pressure Mean 70 Pulse Oximetry 99 97 Oxygen Delivery Method Oxygen Flow Rate Sepsis Recent Fever Within 48 Hours Sepsis New/Unexplained Change in Mental Status Sepsis Action Taken by Nursing Oxygen Flow Rate - Titration Pulse Oximetry Post Tiitration 05/12/23 11:40 05/12/23 11:50 05/12/23 12:00 Temperature Temperature Source Pulse Rate 62 64 Pulse Rate from SpO2 Sensor 60 59 L Respiratory Rate 16 16 Blood Pressure 111/76 Blood Pressure Mean 87 Pulse Oximetry 96 99 Oxygen Delivery Method Oxygen Flow Rate Sepsis Recent Fever Within 48 Hours Sepsis New/Unexplained Change in Mental Status Sepsis Action Taken by Nursing Oxygen Flow Rate - Titration Pulse Oximetry Post Tiitration 05/12/23 12:00 05/12/23 12:10 05/12/23 12:23 Temperature Temperature Source Pulse Rate 67 60 64 Pulse Rate from SpO2 Sensor 60 60 63 Respiratory Rate 14 16 17 Blood Pressure Blood Pressure Mean Pulse Oximetry 97 98 96 Oxygen Delivery Method Oxygen Flow Rate Sepsis Recent Fever Within 48 Hours Sepsis New/Unexplained Change in Mental Status Sepsis Action Taken by Nursing Oxygen Flow Rate - Titration Pulse Oximetry Post Tiitration 05/12/23 12:30 05/12/23 12:30 05/12/23 12:40 Temperature Temperature Source Pulse Rate 67 65 Pulse Rate from SpO2 Sensor 65 64 Respiratory Rate 15 17 Blood Pressure 121/69 Blood Pressure Mean 86 Pulse Oximetry 95 97 Oxygen Delivery Method Oxygen Flow Rate Sepsis Recent Fever Within 48 Hours Sepsis New/Unexplained Change in Mental Status Sepsis Action Taken by Nursing Oxygen Flow Rate - Titration Pulse Oximetry Post Tiitration 05/12/23 12:50 05/12/23 13:00 05/12/23 13:00 Temperature Temperature Source Pulse Rate 60 67 Pulse Rate from SpO2 Sensor 60 60 Respiratory Rate 18 15 Blood Pressure 124/66 Blood Pressure Mean 85 Pulse Oximetry 99 96 Oxygen Delivery Method Oxygen Flow Rate Sepsis Recent Fever Within 48 Hours Sepsis New/Unexplained Change in Mental Status Sepsis Action Taken by Nursing Oxygen Flow Rate - Titration Pulse Oximetry Post Tiitration 05/12/23 13:10 05/12/23 13:20 05/12/23 13:30 Temperature Temperature Source Pulse Rate 63 60 Pulse Rate from SpO2 Sensor 63 60 Respiratory Rate 21 15 Blood Pressure 145/65 H Blood Pressure Mean 91 Pulse Oximetry 99 99 Oxygen Delivery Method Oxygen Flow Rate Sepsis Recent Fever Within 48 Hours Sepsis New/Unexplained Change in Mental Status Sepsis Action Taken by Nursing Oxygen Flow Rate - Titration Pulse Oximetry Post Tiitration 05/12/23 13:30 05/12/23 13:40 05/12/23 13:50 Temperature Temperature Source Pulse Rate 60 60 64 Pulse Rate from SpO2 Sensor 60 60 62 Respiratory Rate 16 15 14 Blood Pressure Blood Pressure Mean Pulse Oximetry 96 96 96 Oxygen Delivery Method Oxygen Flow Rate Sepsis Recent Fever Within 48 Hours Sepsis New/Unexplained Change in Mental Status Sepsis Action Taken by Nursing Oxygen Flow Rate - Titration Pulse Oximetry Post Tiitration Laboratory Data 05/12/23 10:30 05/12/23 10:30 Lab Results 05/12/23 05/12/23 05/12/23 Range/Units 10:30 10:30 10:30 WBC 5.83 (4.8-10.8) K/ul RBC 5.07 (4.20-5.40) M/uL Hgb 14.6 (12.0-16.0) g/dl Hct 44.2 (37.0-47.0) % MCV 87.2 (80.0-100.0) fL MCH 28.8 (25.0-34.0) pg MCHC 33.0 (32.0-36.0) g/dL RDW Std Deviation 45.1 (36.4-46.3) fL RDW Coeff of Kim 14.2 (11.5-14.5) % Plt Count 192 (130-400) K/uL MPV 10.6 (9.4-12.4) fL Immature Gran % (Auto) 0.3 % Neut % (Auto) 53.2 % Lymph % (Auto) 34.6 % [place] % (Auto) 10.5 % Eos % (Auto) 1.2 % Baso % (Auto) 0.2 % Neut # (Auto) 3.10 (1.40-6.50) K/uL Lymph # (Auto) 2.02 (1.2-3.4) K/uL [place] # (Auto) 0.61 H (0.11-0.59) K/uL Eos # (Auto) 0.07 (0-0.50) K/uL Baso # (Auto) 0.01 (0-0.2) K/uL Immature Gran # (Auto) 0.02 (0.01-0.20) K/uL PT 10.9 (9.0-12.0) Seconds INR 1.0 (0.9-1.1) APTT 31.2 H (21.0-31.0) Seconds PTT Ratio 1.1 Sodium 139 (136-145) mmol/L Potassium 3.7 (3.5-5.1) mmol/L Chloride 105 (98-107) mmol/L Carbon Dioxide 25 (21-32) mmol/L Anion Gap 9 (3-11) BUN 25 H (6-23) mg/dl Creatinine 0.87 (0.6-1.2) mg/dl Est Cr Clr Drug Dosing Not Reportable Est GFR ( Amer) 70.4 ml/min Est GFR (Non-Af Amer) 60.7 ml/min BUN/Creatinine Ratio 28.7 H (10-20) Glucose 139 H (70-99(Fasting)) mg/dl Calcium 9.2 (8.6-10.3) mg/dl Magnesium 1.9 (1.7-2.4) mg/dl Total Bilirubin 0.4 (0.2-1.0) mg/dl AST 36 (13-39) U/L ALT 21 (7-52) U/L Alkaline Phosphatase 77 (34-104) U/L Troponin I High Sens 10.0 (0-14) pg/ml Total Protein 7.1 (6.0-8.3) gm/dl Albumin 4.3 (3.4-5.0) gm/dl Globulin 2.8 (2.5-4.0) gm/dl Albumin/Globulin Ratio 1.5 (0.9-2) TSH (0.300-4.500) uIu/ml Free T4 (0.61-1.60) ng/dl Urine Color Urine Appearance (Clear) Urine pH (4.5-7.5) Ur Specific [place] (1.000-1.030) Urine Protein (Negative) Urine Glucose (UA) (Negative) Urine Ketones (Negative) Urine Blood (Negative) Urine Nitrite (Negative) Urine Bilirubin (Negative) Urine Urobilinogen (Negative) Ur Leukocyte Esterase (Negative) Urine WBC (Auto) (0-5) /hpf Urine RBC (Auto) (0-4) /hpf U Hyaline Cast (Auto) (0-5) /lpf U Epithel Cells (Auto) (0-5) /lpf Urine Bacteria (Auto) (Negative) SARS-CoV-2, RNA, NAAT (NEGATIVE) 07/19/23 07/19/23 07/19/23 Range/Units 10:30 12:50 12:50 WBC (4.8-10.8) K/ul RBC (4.20-5.40) M/uL Hgb (12.0-16.0) g/dl Hct (37.0-47.0) % MCV (80.0-100.0) fL MCH (25.0-34.0) pg MCHC (32.0-36.0) g/dL RDW Std Deviation (36.4-46.3) fL RDW Coeff of Kim (11.5-14.5) % Plt Count (130-400) K/uL MPV (9.4-12.4) fL Immature Gran % (Auto) % Neut % (Auto) % Lymph % (Auto) % [place] % (Auto) % Eos % (Auto) % Baso % (Auto) % Neut # (Auto) (1.40-6.50) K/uL Lymph # (Auto) (1.2-3.4) K/uL [place] # (Auto) (0.11-0.59) K/uL Eos # (Auto) (0-0.50) K/uL Baso # (Auto) (0-0.2) K/uL Immature Gran # (Auto) (0.01-0.20) K/uL PT (9.0-12.0) Seconds INR (0.9-1.1) APTT (21.0-31.0) Seconds PTT Ratio Sodium (136-145) mmol/L Potassium (3.5-5.1) mmol/L Chloride (98-107) mmol/L Carbon Dioxide (21-32) mmol/L Anion Gap (3-11) BUN (6-23) mg/dl Creatinine (0.6-1.2) mg/dl Est Cr Clr Drug Dosing Est GFR ( Amer) ml/min Est GFR (Non-Af Amer) ml/min BUN/Creatinine Ratio (10-20) Glucose (70-99(Fasting)) mg/dl Calcium (8.6-10.3) mg/dl Magnesium (1.7-2.4) mg/dl Total Bilirubin (0.2-1.0) mg/dl AST (13-39) U/L ALT (7-52) U/L Alkaline Phosphatase (34-104) U/L Troponin I High Sens (0-14) pg/ml Total Protein (6.0-8.3) gm/dl Albumin (3.4-5.0) gm/dl Globulin (2.5-4.0) gm/dl Albumin/Globulin Ratio (0.9-2) TSH 4.645 H (0.300-4.500) uIu/ml Free T4 0.85 (0.61-1.60) ng/dl Urine Color Dark Yellow Urine Appearance Clear (Clear) Urine pH 5.5 (4.5-7.5) Ur Specific [place] 1.023 (1.000-1.030) Urine Protein Trace H (Negative) Urine Glucose (UA) Negative (Negative) Urine Ketones Trace H (Negative) Urine Blood Negative (Negative) Urine Nitrite Negative (Negative) Urine Bilirubin Negative (Negative) Urine Urobilinogen Negative (Negative) Ur Leukocyte Esterase 1+ H (Negative) Urine WBC (Auto) >30 H (0-5) /hpf Urine RBC (Auto) 0-4 (0-4) /hpf U Hyaline Cast (Auto) 1-5 (0-5) /lpf U Epithel Cells (Auto) 0-5 (0-5) /lpf Urine Bacteria (Auto) 4+ H (Negative) SARS-CoV-2, RNA, NAAT POSITIVE A* (NEGATIVE) Administered Medications Discontinued Medications Dexamethasone Sodium Phosphate (DexamethasonePf 10 Mg/Ml Vial) 6 mg IV NOW ONE Stop: 05/12/23 11:30 Last Admin: 05/12/23 11:46 Dose: 6 mg Documented By: RHONDA Ceftriaxone Sodium (Rocephin) 2,000 mg in 70 mls @ 140 mls/hr IV NOW STA Stop: 05/12/23 14:20 Last Infusion: 05/12/23 14:29 Dose: 0 mls/hr Documented By: Admin: 05/12/23 13:59 Dose: 140 mls/hr Documented By: RHONDA Ioversol (Ioversol 350 Mg 125ml Prefilled Syringe) 115 ml IV ONCE ONE Stop: 05/12/23 15:24 Last Admin: 05/12/23 15:24 Dose: 115 ml Documented By: ANIKA Imaging Data Radiologist's Impression: Chest X-Ray 05/12/23 11:29 SINGLE VIEW CHEST CLINICAL HISTORY: Hypoxia. Covid. FINDINGS: An AP, portable, upright chest radiograph is compared to study dated 11/24/2022. A 2-lead cardiac pacemaker is unchanged in position. The examination is degraded by portable technique and patient rotation. The heart is enlarged noting atherosclerotic calcification of the thoracic aorta. The pulmonary vasc ulature is noncongested. Chronic interstitial thickening is similar to previous. There is bibasilar scarring/atelectasis. No airspace consolidation or large pleural effusion is identified. No pneumothorax is seen. The skeletal structures are osteopenic. There is chronic deformity of the left proximal humerus. Surgical clips project over the left axilla. IMPRESSION: 1. Cardiomegaly and cardiac pacemaker without radiographic evidence of congestiv e failure. 2. No airspace consolidation or large pleural effusion is identified. ACT 112: Negative or not required by law. Electronically signed by: Terrence Manriquez M.D. 05/12/2023 12:[address] 05/12/23 11:53 CT SCAN OF THE BRAIN WITHOUT IV CONTRAST CLINICAL HISTORY: Syncope. COMPARISON STUDY: CT of the brain dated 03/12/2023. TECHNIQUE: Unenhanced axial CT scan of the brain is performed from the vertex to the skull base. A dose lowering technique was utilized adhering to the principles of ALARA. CT DOSE: 625.80 mGy.cm FINDINGS: Brain parenchyma: There is age-related involutional change noting moderate subcortical and periventricular microangiopathic disease. There is no hemorrhage, mass effect, or evidence of acute territorial ischemia by CT criteria. Marques-white matter differentiation is preserved. No extra-axial fluid collection is seen. Ventricles, sulci, cisterns: Prominent secondary to involutional change. Intracranial vasculature: There is atherosclerotic calcification of the cavernous carotid and vertebral arteries. Calvarium: The skeletal structures are osteopenic. No depressed calvarial fracture is seen. Advanced degenerative change is noted in the temporomandibular joints. Soft tissues: There is a small left frontal scalp contusion. Sinuses and mastoids: There is trace mucosal thickening within the maxillary antra as well as the sphenoid, ethmoid, and frontal sinuses. There is trace fluid in the right maxillary antrum. The mastoid air cells are well pneumatized. Orbits: The bony orbits are grossly intact. There are bilateral ocular lens implants. IMPRESSION: There is no hemorrhage, mass effect, or evidence of acute territorial ischemia by CT criteria. ACT 112: Negative or not required by law. Electronically signed by: Terrence Manriquez M.D. 05/12/2023 12:27 PM Discharge Plan Visit Data Chief Complaint: Syncope Stated Complaint: SYNCOPE, COVID + ED Provider: Jignesh Sosa Discharge Problem: Hypoxia, Dementia, COVID-19, Syncope, Acute UTI Patient Disposition: Admitted As Inpatient Discharge Instructions Interventions: ED Discharge Assessment Last Done: 05/12/23 15:36
[2023-05-12 12:11] LABS: Alanine Aminotransferase 21 U/L (7-52); Albumin Globulin Ratio 1.5 (0.9-2); Albumin Level 4.3 gm/dl (3.4-5.0); Alkaline Phosphatase 77 U/L (34-104); Anion Gap 9 (3-11); Aspartate Aminotransferase 36 U/L (13-39); BUN Creatinine Ratio 28.7 (10-20); Bilirubin,Total 0.4 mg/dl (0.2-1.0); Blood Urea Nitrogen 25 mg/dl (6-23); Calcium 9.2 mg/dl (8.6-10.3); Carbon Dioxide 25 mmol/L (21-32); Chloride 105 mmol/L (98-107); Est GFR (African American) 70.4 ml/min; Est GFR (Non-African American) 60.7 ml/min; Globulin 2.8 gm/dl (2.5-4.0); Glucose 139 mg/dl (70-99(Fasting)); Magnesium 1.9 mg/dl (1.7-2.4); Potassium 3.7 mmol/L (3.5-5.1); Sodium 139 mmol/L (136-145); Total Protein 7.1 gm/dl (6.0-8.3)
[2023-05-12 12:20] LABS: Thyroid Stimulating Hormone 4.645 uIu/ml (0.300-4.500)
[2023-05-12 12:22] LABS: Partial Thromboplastin Ratio 1.1; Partial Thromboplastin Time 31.2 Seconds (21.0-31.0); Prothrombin Time 10.9 Seconds (9.0-12.0)
--- NOTE | 2023-05-12 12:28 | CT Scan Report ---
CT SCAN OF THE BRAIN WITHOUT IV CONTRAST CLINICAL HISTORY: Syncope. COMPARISON STUDY: CT of the brain dated 03/12/2023. TECHNIQUE: Unenhanced axial CT scan of the brain is performed from the vertex to the skull base. A do se lowering technique was utilized adhering to the principles of ALARA. CT DOSE: 625.80 mGy.cm FINDINGS: Brain parenchyma: There is age-related involutional change noting moderate subcortical and periventri cular microangiopathic disease. There is no hemorrhage, mass effect, or evidence of acute territorial ischemia by CT criteria. Marques-white matter differentiation is preserved. No extra-axial fluid collec tion is seen. Ventricles, sulci, cisterns: Prominent secondary to involutional change. Intracranial vasculature: There is atherosclerotic calcification of the cavernous carotid and vertebr al arteries. Calvarium: The skeletal structures are osteopenic. No depressed calvarial fracture is seen. Advanced degenerative change is noted in the temporomandibular joints. Soft tissues: There is a small left frontal scalp contusion. Sinuses and mastoids: There is trace mucosal thickening within the maxillary antra as well as the sph enoid, ethmoid, and frontal sinuses. There is trace fluid in the right maxillary antrum. The mastoid air cells are well pneumatized. Orbits: The bony orbits are grossly intact. There are bilateral ocular lens implants. IMPRESSION: There is no hemorrhage, mass effect, or evidence of acute territorial ischemia by CT melvina sosa. ACT 112: Negative or not required by law. Electronically signed by: Terrence Manriquez M.D. 05/12/2023 12:27 PM
--- NOTE | 2023-05-12 12:30 | XRay Report ---
SINGLE VIEW CHEST CLINICAL HISTORY: Hypoxia. Covid. FINDINGS: An AP, portable, upright chest radiograph is compared to study dated 11/24/2022. A 2-lead ca rdiac pacemaker is unchanged in position. The examination is degraded by portable technique and patie nt rotation. The heart is enlarged noting atherosclerotic calcification of the thoracic aorta. The p ulmonary vasculature is noncongested. Chronic interstitial thickening is similar to previous. There i s bibasilar scarring/atelectasis. No airspace consolidation or large pleural effusion is identified. No pneumothorax is seen. The skeletal structures are osteopenic. There is chronic deformity of the le ft proximal humerus. Surgical clips project over the left axilla. IMPRESSION: 1. Cardiomegaly and cardiac pacemaker without radiographic evidence of congestive failure. 2. No airspace consolidation or large pleural effusion is identified. ACT 112: Negative or not required by law. Electronically signed by: Terrence Manriquez M.D. 05/12/2023 12:29 PM
[2023-05-12 13:07] LABS: Appearance Urine Clear (Clear); Bacteria Urine Automated 4+ (Negative); Bilirubin Urine Negative (Negative); Blood Urine Negative (Negative); Color Urine Dark Yellow; Epithelial Cell Urine Auto 0-5 /lpf (0-5); Glucose Urine UA Negative (Negative); Ketones Urine Trace (Negative); Leukocyte Esterase Urine 1+ (Negative); Nitrite Urine Negative (Negative); Protein Urine Trace (Negative); RBC Urine Automated 0-4 /hpf (0-4); Specific Gravity Urine 1.023 (1.000-1.030); Urobilinogen Urine Negative (Negative); WBC Urine Automated >30 /hpf (0-5); pH Urine 5.5 (4.5-7.5)
--- NOTE | 2023-05-12 13:20 | History & Physical Report ---
Date of Service May 12, 2023 Assessment & Plan (1) Syncope: Plan: Patient is 87-year-old female with PMH paroxysmal atrial fibrillation anticoagulated on Eliquis, sick sinus syndrome s/p pacemaker, HTN, HLD, breast cancer s/p bilateral mastectomy, Alzheimer disease, GERD presented to ER from [facility] with complaint of syncopal episode this morning. DDX: Vasovagal syncope, orthostatic hypotension, Paxlovid medication side effect, hypoxia, arrhythmia, underlying infection Currently patient with generalized weakness, no other focal findings and at baseline mental status. Suspect syncopal episode, less likely CVA In ER vital stable, no leukocytosis, initial high-sensitivity troponin WNL, TSH: 4.6 CT head: No acute intracranial abnormality Obtain orthostatic vitals Pacemaker interrogation Fall precautions Repeat troponin CBC, BMP in a.m. If recurrent syncope may need to consider further workup or neuro consult (2) Acute respiratory failure with hypoxia: (3) COVID-19: Plan: 05/09/23 +COVID-19 test outpatient 05/10/23 reported increased generalized weakness, 1 episode of vomiting. Outpatient O2 sats reported 90-92% on RA. Paxlovid started 05/10/23 Today in ER sats dropped to 87% on RA up to 96% on 2L CXR: no infiltrate In ER given dexamethasone 6 mg IV Airborne isolation Supplemental oxygen Hold Paxlovid CTA chest pending to r/o PE CBC, BMP in am (4) Metabolic encephalopathy: (5) Acute UTI: Plan: Patient denies UTI symptoms however baseline history of dementia UA: >30 WBC, 1+ leuk esterase, 4+ bacteria In ER given Rocephin Urine culture pending Continue Rocephin (6) A-fib: Plan: History of paroxysmal atrial fibrillation chronically anticoagulated on Eliquis Eliquis had been held past 2 days while on Paxlovid Resume home Eliquis (7) Sick sinus syndrome: Plan: S/P pacemaker Paced rhythm on EKG (8) HTN (hypertension): Plan: Continue losartan (9) Hyperlipidemia: Plan: Continue pravastatin (10) Dementia: Plan: History of Alzheimer's dementia Continue memantine, donepezil Monitor for delirium (11) GERD (gastroesophageal reflux disease): Plan: Continue PPI (12) History of breast cancer: Plan: S/P bilateral mastectomy DVT Prophylaxis On Eliquis DNR/DNI as per discussion with pt Follows with Dr Jauregui for routine care Pt was seen and care coordinated with Dr Meneses. See addendum I spent a total of 80 minutes reviewing notes, outpatient records, labs, medication, coordinating, documenting and providing care for this patient excluding time spent in the performance of separately billed services. History of Present Illness Chief Complaint: syncope Primary Care Provider: Jimmy Jauregui DO Patient is 87-year-old female with PMH paroxysmal atrial fibrillation anticoagulated on Eliquis, sick sinus syndrome s/p pacemaker, HTN, HLD, breast cancer s/p bilateral mastectomy, Alzheimer disease, GERD presented to ER from [facility] with complaint of syncope. Minimal history obtained from patient secondary to dementia. History obtained from staff from [facility] as well as chart review. Staff report that patient had exposure to COVID-19 positive resident. Patient was tested positive on 05/09/23 and was positive. On 05/10/17 patient seemed more weak than usual. It was noted her O2 sats around 90-92%. Reported baseline O2 95%. States one episode of vomiting 3 days ago. Started Paxlovid on 05/10/23 and her Eliquis and pravastatin have been on hold since 05/10/23. Denies any noted SOB, wheezing. Patient reports feeling cold and having chills but staff have not noted recorded fever. Reports chronic cough while eating. Denies any increased coughing or noted hemoptysis. Today it is reported by staff that patient rang her call campbell and staff went in and staff found patient sitting in her wheelchair. States she grunted and then she appeared rose in coloration and her eyes rolled in head and states that she passed out for a few minutes. It is reported that when she awoke she couldn't squeeze with right hand and looked like she had questionable right facial droop. They state that she seemed to have some word finding issues after the episode. She also had mumbling speech which is not her baseline. Patient was found to have loose bowel movement during this episode. Patient reported she had to go to bathroom and staff were able to get her to bathroom and get her cleaned up. Reports that patient typically incontinent urine and occasionally stool, but typically stool incontinence occurs when can't get to bathroom quick enough. Denies any noted shaking, biting of tongue. States patient was alert when EMS arrived but did have some mumbled speech for them. At baseline patient alert to person, typically does not know her birthday and thinks she is living in [place] and that her parents are still alive. Patient does not require oxygen at baseline. Staff have not noticed any hematemesis, hematochezia, or melena. Currently when asked patient states "feel fine". Says "no" to CP, SOB, abdominal pain, KRUEGER, dizziness, extremity pain, dysuria, nausea, cough, rhinorrhea. Spoke with patient's daughter Torrie on phone. Reports patient is DNR/DNI. Patient's daughter Katarina is out of town on vacation currently. Allergies Allergy/AdvReac Type Severity Reaction Status Date / Time Sulfa (Sulfonamide Allergy Unknown [place] Verified 05/12/23 12:31 Antibiotics) [facility] Home Medications Medication Instructions Recorded Confirmed Type acetaminophen 500 mg tablet 1,000 mg PO TID 09/25/22 05/12/23 History alendronate 10 mg tablet 10 mg PO DAILY 09/25/22 05/12/23 History apixaban 2.5 mg tablet (Eliquis) 2.5 mg PO BID 09/25/22 05/12/23 History donepezil 10 mg tablet 10 mg PO HS 09/25/22 05/12/23 History esomeprazole magnesium 40 mg 40 mg PO QAM 09/25/22 05/12/23 History capsule,delayed release hydroxyzine HCl 25 mg tablet 25 mg PO HS 09/25/22 05/12/23 History lidocaine 4 % topical patch 1 patch topical DAILY PRN pain 09/25/22 05/12/23 History (Lidocaine Pain Relief) losartan 25 mg tablet 25 mg PO DAILY 09/25/22 05/12/23 History memantine 10 mg tablet 10 mg PO BID 09/25/22 05/12/23 History pravastatin 80 mg tablet 80 mg PO DAILY 09/25/22 05/12/23 History tolterodine 2 mg capsule,extended 2 mg PO DAILY 09/25/22 05/12/23 History release 24 hr diphenhydramine HCl 25 mg capsule 25 mg PO Q8H PRN itching #30 caps 11/24/22 05/12/23 Rx (Benadryl) calcium carbonate 600 mg-vitamin 1 tab PO TIDM 12/16/22 05/12/23 History D3 10 mcg (400 unit) tablet (Calcium 600 + D(3)) docusate sodium 100 mg capsule 100 mg PO HS 12/16/22 05/12/23 History cetirizine 10 mg tablet (Zyrtec) 10 mg PO DAILY 03/12/23 05/12/23 History cholecalciferol (vitamin D3) 50 50 mcg PO DAILY 03/12/23 05/12/23 History mcg (2,000 unit) capsule (Vitamin D3) dextromethorphan polistirex 30 10 ml PO Q12H PRN Cough 03/12/23 05/12/23 History mg/5 mL oral susp ext.release 12hr (Delsym 12 hour) geriatric [id number]-[id number] 1 tab PO DAILY 03/12/23 05/12/23 History hydrocortisone 1 % topical cream 1 applic topical BID PRN AFFECTED 03/12/23 05/12/23 History AREA hydroxyzine HCl 25 mg tablet 25 mg PO DAILY PRN ALLERGIES 03/12/23 05/12/23 History lorazepam 0.5 mg tablet 0.5 mg PO BID PRN Anxiety 03/12/23 05/12/23 History nystatin 100,000 unit/gram topical 1 applic topical DAILY PRN 03/12/23 05/12/23 History cream NEEDED FOR YEAST sertraline 100 mg tablet 100 mg PO DAILY 03/12/23 05/12/23 History Paxlovid 4 tabs PO DIRECTED 05/12/23 05/12/23 History betamethasone dipropionate 0.05 % 1 applic topical BID PRN Itching 05/12/23 05/12/23 History topical cream Past Med/Surg History Medical History A-fib Dementia GERD (gastroesophageal reflux disease) History of breast cancer HTN (hypertension) Hyperlipidemia Influenza A Osteoporosis Pacemaker Sick sinus syndrome Surgical History H/O mastectomy Social History Smoking Status: Former smoker Cigarettes Per Day: smoked for one month; Second Hand Exposure: No; Do You Dip or Chew Tobacco: No; Tobacco Cessation Education Requested by Patient: No Hx Alcohol Use: Yes ("sore subject") Hx Substance Use: No Preferred Language: Citizen Of [place] Communication Ability: Effective Rope Cleaner Required: No Beliefs That Will Affect Care: None Current Living Situation: [facility] Feels Safe at Home: Yes Safety Concerns: Feels Safe At This Time Assistive Devices: Denture - Upper, Denture - Lower and Glasses Review of Systems Review of Systems: Unobtainable due to cognitive status Physical Exam Physical Exam: General: no distress, WDWN Head: normocephalic, atraumatic Eyes: PERRL, EOM's intact, conjunctiva non-injected, anicteric ENT: normal inspection external ears, nose, mucous membranes dry Neck: supple, trachea midline Lungs: clear, no respiratory distress on current 2L via NC, no wheezing/rhonchi/rales CV: RRR, no pretibial edema Abd: normal BS, soft, non-tender Ext: no cyanosis, no calf tenderness Neuro: Alert, oriented to person, can say her name clearly. Says birthday is [birth year] but does not know month or year. Clearly states she knows in ER but mumbles when tries to say the town. +diffuse weakness throughout Skin: warm, dry Results & Data Results & Data Vital Signs (Past 12 Hours) Vital Signs Temp Pulse Resp BP Pulse Ox O2 Del Method O2 Flow Rate 05/12/23 12:00 67 14 97 05/12/23 12:00 111/76 05/12/23 11:50 64 16 99 05/12/23 11:40 62 16 96 05/12/23 11:30 62 16 97 05/12/23 11:30 117/47 L 05/12/23 11:20 67 17 99 05/12/23 11:14 67 18 98 05/12/23 12:00 97 Nasal Cannula 2 05/12/23 11:55 67 05/12/23 11:20 36.9 C 75 15 123/62 99 Nasal Cannula 2 05/12/23 11:14 36.9 C 15 99 Nasal Cannula 2 05/12/23 11:14 87 L Room Air 0 Laboratory Results Short CBC 05/12/23 Range/Units 10:30 WBC 5.83 (4.8-10.8) K/ul Hgb 14.6 (12.0-16.0) g/dl Hct 44.2 (37.0-47.0) % Plt Count 192 (130-400) K/uL [facility] 05/12/23 10:30 Sodium 139 Potassium 3.7 Chloride 105 Carbon Dioxide 25 BUN 25 H Creatinine 0.87 Glucose 139 H Calcium 9.2 Liver Function 05/12/23 Range/Units 10:30 Total Bilirubin 0.4 (0.2-1.0) mg/dl AST 36 (13-39) U/L ALT 21 (7-52) U/L Alkaline Phosphatase 77 (34-104) U/L Albumin 4.3 (3.4-5.0) gm/dl Urine 05/12/23 Range/Units 12:50 Urine Color Dark Yellow Urine Appearance Clear (Clear) Urine pH 5.5 (4.5-7.5) Ur Specific [place] 1.023 (1.000-1.030) Urine Protein Trace H (Negative) Urine Glucose (UA) Negative (Negative) Diagnostic Findings Short CBC 05/12/23 Range/Units 10:30 WBC 5.83 (4.8-10.8) K/ul Hgb 14.6 (12.0-16.0) g/dl Hct 44.2 (37.0-47.0) % Plt Count 192 (130-400) K/uL [facility] 05/12/23 10:30 Sodium 139 Potassium 3.7 Chloride 105 Carbon Dioxide 25 BUN 25 H Creatinine 0.87 Glucose 139 H Calcium 9.2 Liver Function 05/12/23 Range/Units 10:30 Total Bilirubin 0.4 (0.2-1.0) mg/dl AST 36 (13-39) U/L ALT 21 (7-52) U/L Alkaline Phosphatase 77 (34-104) U/L Albumin 4.3 (3.4-5.0) gm/dl Urine 05/12/23 Range/Units 12:50 Urine Color Dark Yellow Urine Appearance Clear (Clear) Urine pH 5.5 (4.5-7.5) Ur Specific [place] 1.023 (1.000-1.030) Urine Protein Trace H (Negative) Urine Glucose (UA) Negative (Negative) ECG Findings: + paced rhythm Supervising Physician Co-Signing Physician Notes I have seen and examined the patient and have discussed the case with the provider above. I agree with the assessment and plan as stated with the following exceptions. Patient is 87-year-old female with Alzheimer's who presents after syncopal event at [facility] where she resides. She is positive for COVID but denies any respiratory symptoms. She has been on Paxlovid. Work-up revealed a urinary tract infection and patient reports being symptomatic for at least 2 weeks. There are no focal deficits consistent with a stroke and no seizure activity was reported. Notably she did also report having a large rather intense bowel movement just prior to this episode. Glucose was within normal limits. BM was precipitated by orange juice which is what she uses to stimulate her bowels. She is feeling improved in the ER. She received Tylenol Rocephin and she did receive dexamethasone for COVID-19. Given her infection, will not continue steroids at this time. Would not continue Paxlovid either. Continue supportive care for COVID symptoms and isolation per protocol. We will stop her Ditropan in the setting of urinary infection. Physical exam reveals a oriented elderly female in no acute distress. She is oxygenating 92% on 2 L nasal cannula with no increased respiratory distress. She is hemodynamically stable and afebrile. Lab work imaging and EKG reviewed. 1 syncope likely secondary to recent large BM in the setting of Paxlovid and COVID as well as urinary tract infection. 2. Urinary tract infection 3. COVID-19 infection With mild hypoxia Continue Rocephin pending culture results. Supportive care with PT/OT evaluation Avoid steroids. Otherwise agree with plan as indicated above. DO Gideon (8) HTN (hypertension) Hypertension type: unspecified Qualified Code(s): I10 - Essential (primary) hypertension
[2023-05-12] MEDS ORDERED: cefTRIAXone SODIUM 2,000 MG/70 ML BAG IV STA (13:51)
[2023-05-12 14:41] LABS: T4 Free Thyroxine 0.85 ng/dl (0.61-1.60)
--- NOTE | 2023-05-12 15:14 | Electrocardiogram Report ---
Test Reason : Blood Pressure : / mmHG Vent. Rate : 067 BPM Atrial Rate : 067 BPM P-R Int : 196 ms QRS Dur : 088 ms QT Int : 408 ms P-R-T Axes : 000 -30 035 degrees QTc Int : 431 ms Atrial-paced rhythm with Premature atrial complexes Left axis deviation Abnormal ECG When compared with ECG of 24-NOV-2022 11:56, No significant change was found Confirmed by Guillaume Ricardo ([id number]) on 05/12/2023 3:14:00 PM Referred By: Sid Aviles Confirmed By:Guillaume Ricardo
[2023-05-12] MEDS ORDERED: IOVERSOL 350 MG 125mL Prefilled Syringe IV ONE (15:23)
--- NOTE | 2023-05-12 16:05 | CT Scan Report ---
CHEST CTA for PULMONARY ARTERIES CT DOSE: HISTORY: Covid positive. Shortness of breath. TECHNIQUE: Multiaxial CT images of the chest were performed following the intravenous administration of contrast to evaluate the pulmonary arteries. 3D/Maximal intensity projection images were also obta ined. Sagittal and coronal reformations were also reviewed. A dose lowering technique was utilized a dhering to the principles of ALARA. COMPARISON STUDY: None. FINDINGS: Moderate calcified plaque within the thoracic aorta. No evidence for an aortic dissection. The ascending thoracic aorta measures up to 3.7 cm in diameter. There is an aberrant right subclavian artery noted with severe focal narrowing proximally due to the calcified plaque. The heart is mildly enlarged. A left-sided pacemaker is noted. No filling defects within the pulmonary arteries to sugge st a pulmonary embolus. The thyroid gland enhances normally. Bilateral breast implants are noted. Kat ited views the upper abdomen demonstrate normal liver and spleen. There is a large hiatus hernia. Mil d thickening of the esophagus is noted. This suggests a mild esophagitis. No mediastinal hilar lympha denopathy. There is also suggestion of thickening of the gastric wall. However, this could be due to underdistention. No pleural or pericardial effusions. There are old mild compression deformities seen within the thoracic and lumbar spine. There are old, healed bilateral rib fractures. Focal deformity within multiple right anterior ribs are likely chronic. No definite acute fractures within the chest . No pneumothorax. The central airways are patent. Bibasilar linear densities favor subsegmental atel ectasis or scarring. Otherwise, no focal lung consolidations to suggest a pneumonia. No evidence for pulmonary edema. IMPRESSION: 1. No evidence for a pulmonary embolus. 2. No focal lung consolidations to suggest a pneumonia. 3. Mild cardiomegaly. 4. Large hiatus hernia. 5. Mild circumferential thickening of the esophagus suggestive of a mild esophagitis. 6. Thickening of the gastric wall versus underdistention. This could represent a gastritis. 7. Focal high-grade stenosis at the proximal aberrant right subclavian artery due to the calcified pl aque. ACT 112: Negative or not required by law. Electronically signed by: Rishi Roman M.D. 05/12/2023 4:04 PM
[2023-05-12] MEDS ORDERED: PHARMACIST DISCHARGE MED REC CONSULT PRN (16:28)
[2023-05-12] MEDS ORDERED: ONDANSETRON INJ 2 MG/ML 2 ML VIAL IV PRN (16:28)
[2023-05-12] MEDS ORDERED: POLYETHYLENE (MIRALAX) 17 GM PACK PO PRN (16:28)
[2023-05-12] MEDS ORDERED: SODIUM CHLORIDE 0.9% 1000ML 1,000 ML IV SCH (16:30)
[2023-05-12] MEDS: ACETAMINOPHEN 500 MG TAB PO SCH (21:17)
[2023-05-12] MEDS: DOCUSATE SODIUM 100 MG CAP PO SCH (21:21)
[2023-05-12] MEDS: MEMANTINE HCL 10 MG TAB PO SCH (21:21)
[2023-05-12] MEDS: DONEPEZIL HCL 10 MG TAB PO SCH (21:22)
[2023-05-12] MEDS: hydrOXYzine HCl 25 MG TAB PO SCH (21:22)
[2023-05-12] MEDS: APIXABAN 2.5 MG TAB PO SCH (21:23)
[2023-05-13 07:24] LABS: Hematocrit (blood only) 39.8 % (37.0-47.0); Hemoglobin 13.3 g/dl (12.0-16.0); Mean Corpuscular Hemoglobin 28.7 pg (25.0-34.0); Mean Corpuscular Hgb Conc 33.4 g/dL (32.0-36.0); Mean Corpuscular Volume 85.8 fL (80.0-100.0); Mean Platelet Volume 9.9 fL (9.4-12.4); Platelet Count 185 K/uL (130-400); RDW Coefficient of Variation 13.6 % (11.5-14.5); RDW Standard Deviation 42.8 fL (36.4-46.3); Red Blood Count 4.64 M/uL (4.20-5.40); White Blood Count 4.57 K/ul (4.8-10.8)
[2023-05-13] MEDS: ACETAMINOPHEN 500 MG TAB PO SCH ×3 (07:49→21:01)
[2023-05-13] MEDS: SERTRALINE HCL 100 MG TABLET PO SCH (07:50)
[2023-05-13] MEDS: CETIRIZINE HCL 10 MG TABLET PO SCH (07:50)
[2023-05-13] MEDS: LOSARTAN POTASSIUM 25 MG TAB PO SCH (07:50)
[2023-05-13] MEDS: PANTOprazole 40 MG TAB PO SCH (07:50)
[2023-05-13] MEDS: APIXABAN 2.5 MG TAB PO SCH ×2 (07:50→21:08)
[2023-05-13] MEDS: PRAVASTATIN SOD 40 MG TAB PO SCH (07:50)
[2023-05-13] MEDS: MEMANTINE HCL 10 MG TAB PO SCH ×2 (07:51→21:08)
[2023-05-13 07:54] LABS: BUN Creatinine Ratio 36.2 (10-20); Calcium 8.3 mg/dl (8.6-10.3); Creatinine Clr Calc Pharmacy 59.6 ml/min; Est GFR (African American) 97.4 ml/min
[2023-05-13] MEDS ORDERED: OXYBUTYNIN CHLORIDE XL 5 MG TABCR PO SCH (09:00)
--- NOTE | 2023-05-13 12:20 | Hospitalist Progress Note ---
Date of Service May 13, 2023 Assessment & Plan (1) Syncope: Plan: Patient is 87-year-old female with PMH paroxysmal atrial fibrillation anticoagulated on Eliquis, sick sinus syndrome s/p pacemaker, HTN, HLD, breast cancer s/p bilateral mastectomy, Alzheimer disease, GERD presented to ER from [facility] with complaint of syncopal episode this morning. Syncope DDX: Vasovagal, orthostatic hypotension, Paxlovid medication side effect, hypoxi a, R/O arrhythmia --CT head:There is no hemorrhage, mass effect, or evidence of acute territorial ischemia by CT criteria. --Troponin X 2 Negative Check orthostatics Held Plavix with Monitor for any arrhythmias Pacemaker interrogation requested Fall precautions PT /OT as able (2) Acute respiratory failure with hypoxia: (3) COVID-19: Plan: Acute respiratory failure with hypoxia COVID-19 infection 05/09/23 +COVID-19 test outpatient 05/10/23 reported increased generalized weakness, 1 episode of vomiting. Outpatient O2 sats reported 90-92% on RA. Paxlovid started 05/10/23 --CTA:No evidence for a pulmonary embolus. No focal lung consolidations to suggest a pneumonia. Mild cardiomegaly. Large hiatus hernia. Mild circumferential thickening of the esophagus suggestive of a mild esophagitis. Thickening of the gastric wall versus underdistention. This could represent a gastritis. Focal high-grade stenosis at the proximal aberrant right subclavian artery due to the calcified plaque. -- Check CRP, procalcitonin Empirically started on Rocephin Consider IV dexamethasone if respiratory status worsens Wean off of supplemental oxygen as able Continue isolation precautions (4) Metabolic encephalopathy: (5) Acute UTI: Plan: UTI Urine culture growing gram-negative bacilli Continue Rocephin as above Follow-up cultures (6) A-fib: Plan: History of paroxysmal atrial fibrillation chronically anticoagulated on Eliquis Eliquis had been held past 2 days while on Paxlovid Continue Eliquis (7) Sick sinus syndrome: Plan: S/P pacemaker Paced rhythm on EKG (8) HTN (hypertension): Plan: Continue losartan (9) Hyperlipidemia: Plan: Continue pravastatin (10) Dementia: Plan: History of Alzheimer's dementia Continue memantine, donepezil Monitor for delirium (11) GERD (gastroesophageal reflux disease): Plan: Continue PPI (12) History of breast cancer: Plan: S/P bilateral mastectomy DVT Prophylaxis On Eliquis Code Status DNR/DNI Admission and Anticipated Discharge Date Admission Date: May 12, 2023 Subjective Patient is seen and examined at bedside States having cough with intermittent expectoration Denies any dyspnea, dizziness, nausea, vomiting, abdominal pain, diarrhea, dysuria Saturating well on 2 L supplemental oxygen No other complaints Review of Systems Review of Systems: All systems reviewed & are unremarkable except as noted in Subjective Physical Exam Physical Exam: Physical Exam: Vitals signs as noted above General Appearance:Elderly, no apparent distress Head: normocephalic, Atraumatic Eyes: normal inspection, EOMI Neck: supple, Trachea midline Respiratory/Chest: Normal breath sounds, CTA, +Breast reconstruction, No accessory muscle use Cardiovascular: S1, S2, No murmur Abdomen/GI:Soft, Non tender, Bowel sounds present Extremities/Musculoskeletal:normal inspection, no edema Neurologic/Psych:AAOX2, grossly no focal neurological deficits, +Dementia Skin: normal color, warm Results & Data Results & Data Vital Signs (Past 12 Hours) Vital Signs Temp Pulse Pulse Resp BP Pulse Ox O2 Del Method 05/13/23 11:20 36.9 C 49 L 18 139/62 95 Room Air 05/13/23 07:00 69 05/13/23 08:00 Nasal Cannula 05/13/23 07:00 37 C 63 18 152/69 H 94 Room Air 05/13/23 07:48 36.8 C 64 20 169/73 H 92 Nasal Cannula 05/13/23 02:41 36.8 C 57 L 18 151/79 H 91 Nasal Cannula O2 Flow Rate 05/13/23 11:20 05/13/23 07:00 05/13/23 08:00 2 05/13/23 07:00 05/13/23 07:48 2 05/13/23 02:41 2 Laboratory Results Short CBC 05/13/23 Range/Units 06:59 WBC 4.57 L (4.8-10.8) K/ul Hgb 13.3 (12.0-16.0) g/dl Hct 39.8 (37.0-47.0) % Plt Count 185 (130-400) K/uL BMP 05/13/23 06:59 Sodium 138 Potassium 4.0 Chloride 106 Carbon Dioxide 24 BUN 21 Creatinine 0.58 L Glucose 160 H Calcium 8.3 L Urine 05/12/23 Range/Units 12:50 Urine Color Dark Yellow Urine Appearance Clear (Clear) Urine pH 5.5 (4.5-7.5) Ur Specific [place] 1.023 (1.000-1.030) Urine Protein Trace H (Negative) Urine Glucose (UA) Negative (Negative) (8) HTN (hypertension) Hypertension type: unspecified Qualified Code(s): I10 - Essential (primary) hypertension
[2023-05-13] MEDS: cefTRIAXone SODIUM 2,000 MG in DEXTROSE 5% 50 ML IV SCH (15:51)
[2023-05-13] MEDS: MELATONIN 3 MG TAB PO PRN (21:02)
[2023-05-13] MEDS: hydrOXYzine HCl 25 MG TAB PO SCH (21:08)
[2023-05-13] MEDS: DONEPEZIL HCL 10 MG TAB PO SCH (21:08)
[2023-05-13] MEDS: DOCUSATE SODIUM 100 MG CAP PO SCH (21:09)
[2023-05-14] MEDS: ACETAMINOPHEN 500 MG TAB PO SCH ×3 (09:47→20:15)
[2023-05-14] MEDS: APIXABAN 2.5 MG TAB PO SCH ×2 (09:47→20:16)
[2023-05-14] MEDS: PANTOprazole 40 MG TAB PO SCH (09:48)
[2023-05-14] MEDS: PRAVASTATIN SOD 40 MG TAB PO SCH (09:48)
[2023-05-14] MEDS: LOSARTAN POTASSIUM 25 MG TAB PO SCH (09:49)
[2023-05-14] MEDS: SERTRALINE HCL 100 MG TABLET PO SCH (09:49)
[2023-05-14] MEDS: MEMANTINE HCL 10 MG TAB PO SCH ×2 (09:49→20:16)
[2023-05-14] MEDS: CETIRIZINE HCL 10 MG TABLET PO SCH (09:49)
[2023-05-14 09:51] LABS: Anion Gap 7 (3-11); BUN Creatinine Ratio 29.2 (10-20); Blood Urea Nitrogen 21 mg/dl (6-23); C Reactive Protein < 0.50 mg/dl (0-0.5); Carbon Dioxide 28 mmol/L (21-32); Chloride 104 mmol/L (98-107); Est GFR (African American) 88.5 ml/min; Est GFR (Non-African American) 76.4 ml/min; Glucose 137 mg/dl (70-99(Fasting)); Magnesium 1.8 mg/dl (1.7-2.4); Potassium 3.9 mmol/L (3.5-5.1); Sodium 139 mmol/L (136-145)
[2023-05-14 11:00] LABS: Hemoglobin 14.5 g/dl (12.0-16.0); Mean Corpuscular Hemoglobin 28.6 pg (25.0-34.0); Mean Corpuscular Volume 86.8 fL (80.0-100.0); Platelet Count 223 K/uL (130-400); RDW Coefficient of Variation 13.5 % (11.5-14.5); RDW Standard Deviation 43.2 fL (36.4-46.3); Red Blood Count 5.07 M/uL (4.20-5.40); White Blood Count 7.92 K/ul (4.8-10.8)
[2023-05-14] MEDS: cefTRIAXone SODIUM 2,000 MG in DEXTROSE 5% 50 ML IV SCH (13:09)
--- NOTE | 2023-05-14 17:19 | Hospitalist Progress Note ---
Date of Service May 14, 2023 Assessment & Plan (1) Syncope: Plan: Patient is 87-year-old female with PMH paroxysmal atrial fibrillation anticoagulated on Eliquis, sick sinus syndrome s/p pacemaker, HTN, HLD, breast cancer s/p bilateral mastectomy, Alzheimer disease, GERD presented to ER from [facility] with complaint of syncopal episode this morning. Syncope DDX: Vasovagal, orthostatic hypotension, Paxlovid medication side effect, hypoxi a, R/O arrhythmia --CT head:There is no hemorrhage, mass effect, or evidence of acute territorial ischemia by CT criteria. --Troponin X 2 Negative Check orthostatics-not documented yet No arrhythmias noted Pacemaker interrogation done without any recommendation Fall precautions-Will need PT and OT evaluation No more episodes of syncope and no dizziness We will keep monitoring (2) Acute respiratory failure with hypoxia: (3) COVID-19: Plan: Acute respiratory failure with hypoxia COVID-19 infection 05/09/23 +COVID-19 test outpatient 05/10/23 reported increased generalized weakness, 1 episode of vomiting. Outpatient O2 sats reported 90-92% on RA. Paxlovid started 05/10/23 --CTA:No evidence for a pulmonary embolus. No focal lung consolidations to suggest a pneumonia. Mild cardiomegaly. Large hiatus hernia. Mild circumferential thickening of the esophagus suggestive of a mild esophagitis. Thickening of the gastric wall versus underdistention. This could represent a gastritis. Focal high-grade stenosis at the proximal aberrant right subclavian artery due to the calcified plaque. -- Check CRP, procalcitonin Empirically started on Rocephin which will be continued due to UTI Wean off of supplemental oxygen as able Continue isolation precautions Respiratory status unremarkable and has been saturating normally on room air Will not need any further medications for COVID-19 infection (4) Metabolic encephalopathy: Plan: Cleared (5) Acute UTI: Plan: UTI Urine culture growing gram-negative bacilli Continue Rocephin as above Follow-up cultures-growing E. coli and sensitive to ceftriaxone (6) A-fib: Plan: History of paroxysmal atrial fibrillation chronically anticoagulated on Eliquis Eliquis had been held past 2 days while on Paxlovid Continue Eliquis (7) Sick sinus syndrome: Plan: S/P pacemaker Paced rhythm on EKG (8) HTN (hypertension): Plan: Continue losartan (9) Hyperlipidemia: Plan: Continue pravastatin (10) Dementia: Plan: History of Alzheimer's dementia Continue memantine, donepezil Monitor for delirium (11) GERD (gastroesophageal reflux disease): Plan: Continue PPI (12) History of breast cancer: Plan: S/P bilateral mastectomy DVT Prophylaxis On Eliquis Code Status DNR/DNI Admission and Anticipated Discharge Date Admission Date: May 12, 2023 Subjective 05/14/2023 The patient was seen and examined in medical telemetry unit and in the COV[facility] room She has been feeling much better and denies any respiratory symptoms No cough and no shortness of breath at rest and has been saturating normally on room air Noted to have UTI without any symptoms Review of Systems Review of Systems: All systems reviewed and are unremarkable except as noted below Physical Exam Physical Exam: Lying in bed comfortably Constitutional: well developed, well nourished, + ill appearing and average body habitus Eyes: PERRL, conjunctivae normal, anicteric sclerae ENMT: external ear and nose normal, oropharynx normal Neck: trachea midline, no thyromegaly Respiratory: no respiratory distress Auscultation: + diminished lung sounds and + crackles (Minimal crackles at the bases) Cardiovascular: Rate/Rhythm: regular rate and regular rhythm; not tachycardic Heart Sounds: normal S1 and normal S2; no murmur Extremities: no edema Gastrointestinal (Abdomen): Inspection/Auscultation: normal bowel sounds; abdomen not distended Percussion/Palpation: abdomen soft; abdomen nontender Musculoskeletal: No acute arthritis involving any joint Neurologic: normal touch/pain/proprioception and moves all extremities; no focal motor deficits Psychiatric: A+Ox3, euthymic affect Lymphatic: no cervical or axillary lymphadenopathy Results & Data Results & Data Vital Signs (Past 12 Hours) Vital Signs Temp Pulse Pulse Resp BP Pulse Ox O2 Del Method 05/14/23 15:00 62 05/14/23 14:58 36.0 C L 60 18 156/68 H 93 Room Air 05/14/23 13:50 65 05/14/23 10:58 36.5 C 60 16 153/80 H 94 Room Air 05/14/23 07:23 36.3 C L 60 16 167/85 H 93 Room Air Laboratory Results Short CBC 05/14/23 Range/Units 09:15 WBC 7.92 (4.8-10.8) K/ul Hgb 14.5 (12.0-16.0) g/dl Hct 44.0 (37.0-47.0) % Plt Count 223 (130-400) K/uL BMP 05/14/23 09:15 Sodium 139 Potassium 3.9 Chloride 104 Carbon Dioxide 28 BUN 21 Creatinine 0.72 Glucose 137 H Calcium 9.0 Medications Administered Current Inpatient Medications Acetaminophen (Acetaminophen 500 Mg Tab) 1,000 mg PO TID [facility] Stop: 06/11/23 20:59 Last Admin: 05/14/23 13:03 Dose: 1,000 mg Apixaban (Apixaban 2.5 Mg Tab) 2.5 mg PO BID [facility] Stop: 06/11/23 20:59 Last Admin: 05/14/23 09:47 Dose: 2.5 mg Cetirizine HCl (Cetirizine Hcl 10 Mg Tablet) 10 mg PO DAILY [facility] Stop: 06/12/23 08:59 Last Admin: 05/14/23 09:49 Dose: 10 mg Docusate Sodium (Docusate Sodium 100 Mg Cap) 100 mg PO HS [facility] Stop: 06/11/23 20:59 Last Admin: 05/13/23 21:09 Dose: 100 mg Donepezil HCl (Donepezil Hcl 10 Mg Tab) 10 mg PO HS [facility] Stop: 06/11/23 20:59 Last Admin: 05/13/23 21:08 Dose: 10 mg Hydroxyzine HCl (Hydroxyzine Hcl 25 Mg Tab) 25 mg PO HS [facility] Stop: 06/11/23 20:59 Last Admin: 05/13/23 21:08 Dose: 25 mg Ceftriaxone Sodium 2,000 mg/ (Dextrose) 70 mls @ 100 mls/hr IV Q24H [facility]; Protocol Stop: 05/18/23 13:59 Last Infusion: 05/14/23 15:26 Dose: Infused Losartan Potassium (Losartan Potassium 25 Mg Tab) 25 mg PO DAILY [facility] Stop: 06/12/23 08:59 Last Admin: 05/14/23 09:49 Dose: 25 mg Melatonin (Melatonin 3 Mg Tab) 3 mg PO HS PRN PRN Reason: Sleep Stop: 06/12/23 20:22 Last Admin: 05/13/23 21:02 Dose: 3 mg Memantine (Memantine Hcl 10 Mg Tab) 10 mg PO BID [facility] Stop: 06/11/23 20:59 Last Admin: 05/14/23 09:49 Dose: 10 mg Ondansetron HCl (Ondansetron Inj 2 Mg/Ml 2 Ml Vial) 4 mg IV Q6H PRN PRN Reason: Nausea Stop: 06/11/23 16:27 Oxybutynin Chloride (Oxybutynin Chloride Xl 5 Mg Tabcr) 5 mg PO DAILY [facility]; Protocol Stop: 06/12/23 08:59 Pantoprazole Sodium (Pantoprazole 40 Mg Tab) 40 mg PO QAM [facility]; Protocol Stop: 06/12/23 08:59 Last Admin: 05/14/23 09:48 Dose: 40 mg Polyethylene Glycol (Polyethylene (Miralax) 17 Gm Pack) 17 gm PO DAILY PRN PRN Reason: Constipation Stop: 06/11/23 16:27 Pravastatin Sodium (Pravastatin Sod 40 Mg Tab) 80 mg PO DAILY [facility] Stop: 06/12/23 08:59 Last Admin: 05/14/23 09:48 Dose: 80 mg Sertraline HCl (Sertraline Hcl 100 Mg Tablet) 100 mg PO DAILY [facility] Stop: 06/12/23 08:59 Last Admin: 05/14/23 09:49 Dose: 100 mg (8) HTN (hypertension) Hypertension type: unspecified Qualified Code(s): I10 - Essential (primary) hypertension
[2023-05-14] MEDS: MELATONIN 3 MG TAB PO PRN (20:15)
[2023-05-14] MEDS: hydrOXYzine HCl 25 MG TAB PO SCH (20:16)
[2023-05-14] MEDS: DOCUSATE SODIUM 100 MG CAP PO SCH (20:16)
[2023-05-14] MEDS: DONEPEZIL HCL 10 MG TAB PO SCH (20:17)
[2023-05-15 06:46] LABS: Albumin Globulin Ratio 1.5 (0.9-2); Albumin Level 3.5 gm/dl (3.4-5.0); BUN Creatinine Ratio 28.1 (10-20); Bilirubin,Total 0.2 mg/dl (0.2-1.0); Calcium 8.7 mg/dl (8.6-10.3); Creatinine Clr Calc Pharmacy 54.2 ml/min; Est GFR (African American) 94.3 ml/min; Est GFR (Non-African American) 81.4 ml/min; Globulin 2.4 gm/dl (2.5-4.0); Potassium 3.6 mmol/L (3.5-5.1); Total Protein 5.9 gm/dl (6.0-8.3)
[2023-05-15] MEDS: PANTOprazole 40 MG TAB PO SCH (11:06)
[2023-05-15] MEDS: SERTRALINE HCL 100 MG TABLET PO SCH (11:06)
[2023-05-15] MEDS: ACETAMINOPHEN 500 MG TAB PO SCH ×3 (11:06→20:16)
[2023-05-15] MEDS: MEMANTINE HCL 10 MG TAB PO SCH ×2 (11:06→20:18)
[2023-05-15] MEDS: PRAVASTATIN SOD 40 MG TAB PO SCH (11:07)
[2023-05-15] MEDS: LOSARTAN POTASSIUM 25 MG TAB PO SCH (11:07)
[2023-05-15] MEDS: APIXABAN 2.5 MG TAB PO SCH ×2 (11:07→20:17)
[2023-05-15] MEDS: CETIRIZINE HCL 10 MG TABLET PO SCH (11:07)
[2023-05-15] MEDS: cefTRIAXone SODIUM 2,000 MG in DEXTROSE 5% 50 ML IV SCH (14:00)
[2023-05-15] MEDS ORDERED: LOSARTAN POTASSIUM 25 MG TAB PO ONE (15:14)
--- NOTE | 2023-05-15 15:15 | Hospitalist Progress Note ---
Date of Service May 15, 2023 Assessment & Plan (1) Syncope: Plan: Patient is 87-year-old female with PMH paroxysmal atrial fibrillation anticoagulated on Eliquis, sick sinus syndrome s/p pacemaker, HTN, HLD, breast cancer s/p bilateral mastectomy, Alzheimer disease, GERD presented to ER from [facility] with complaint of syncopal episode this morning. Syncope DDX: Vasovagal, orthostatic hypotension, Paxlovid medication side effect, hypoxi a, R/O arrhythmia --CT head:There is no hemorrhage, mass effect, or evidence of acute territorial ischemia by CT criteria. --Troponin X 2 Negative Check orthostatics-not documented yet No arrhythmias noted Pacemaker interrogation done without any recommendation Fall precautions-Will need PT and OT evaluation No more episodes of syncope and no dizziness Denies any more symptoms of dizziness and or no syncope noted Blood pressure remains on the upper side-losartan 25 mg now Will increase losartan to 50 mg (2) Acute respiratory failure with hypoxia: (3) COVID-19: Plan: Acute respiratory failure with hypoxia COVID-19 infection 05/09/23 +COVID-19 test outpatient 05/10/23 reported increased generalized weakness, 1 episode of vomiting. Outpatient O2 sats reported 90-92% on RA. Paxlovid started 05/10/23 --CTA:No evidence for a pulmonary embolus. No focal lung consolidations to suggest a pneumonia. Mild cardiomegaly. Large hiatus hernia. Mild circumferential thickening of the esophagus suggestive of a mild esophagitis. Thickening of the gastric wall versus underdistention. This could represent a gastritis. Focal high-grade stenosis at the proximal aberrant right subclavian artery due to the calcified plaque. -- Check CRP, procalcitonin Empirically started on Rocephin which will be continued due to UTI Wean off of supplemental oxygen as able Continue isolation precautions Respiratory status unremarkable and has been saturating normally on room air Will not need any further medications for COVID-19 infection Remains stable from COVID-19 virus infection and has been saturating normally on room air (4) Metabolic encephalopathy: Plan: Cleared (5) Acute UTI: Plan: UTI Urine culture growing gram-negative bacilli Continue Rocephin as above Follow-up cultures-growing E. coli and sensitive to ceftriaxone (6) A-fib: Plan: History of paroxysmal atrial fibrillation chronically anticoagulated on Eliquis Eliquis had been held past 2 days while on Paxlovid Continue Eliquis (7) Sick sinus syndrome: Plan: S/P pacemaker Paced rhythm on EKG (8) HTN (hypertension): Plan: Continue losartan (9) Hyperlipidemia: Plan: Continue pravastatin (10) Dementia: Plan: History of Alzheimer's dementia Continue memantine, donepezil Monitor for delirium (11) GERD (gastroesophageal reflux disease): Plan: Continue PPI (12) History of breast cancer: Plan: S/P bilateral mastectomy DVT Prophylaxis On Eliquis Code Status DNR/DNI Awaiting placement Admission and Anticipated Discharge Date Admission Date: May 12, 2023 Subjective 05/14/2023 The patient was seen and examined in medical telemetry unit and in the COVID room She has been feeling much better and denies any respiratory symptoms No cough and no shortness of breath at rest and has been saturating normally on room air Noted to have UTI without any symptoms 05/15/2023 The patient was seen and examined in medical telemetry unit She has been feeling much better without any respiratory symptoms at rest Has been saturating on room air Has had physical therapy and will need rehab placement Review of Systems Review of Systems: All systems reviewed and are unremarkable except as noted below Physical Exam Physical Exam: Lying in bed comfortably Constitutional: well developed, well nourished, + ill appearing and average body habitus Eyes: PERRL, conjunctivae normal, anicteric sclerae ENMT: external ear and nose normal, oropharynx normal Neck: trachea midline, no thyromegaly Respiratory: no respiratory distress Auscultation: + diminished lung sounds and + crackles (Minimal crackles at the bases) Cardiovascular: Rate/Rhythm: regular rate and regular rhythm; not tachycardic Heart Sounds: normal S1 and normal S2; no murmur Extremities: no edema Gastrointestinal (Abdomen): Inspection/Auscultation: normal bowel sounds; abdomen not distended Percussion/Palpation: abdomen soft; abdomen nontender Neurologic: normal touch/pain/proprioception and moves all extremities; no fo hugo motor deficits Psychiatric: A+Ox3, euthymic affect Lymphatic: no cervical or axillary lymphadenopathy Results & Data Results & Data Vital Signs (Past 12 Hours) Vital Signs Temp Pulse Pulse Resp BP Pulse Ox O2 Del Method 05/15/23 08:00 60 05/15/23 12:07 36.4 C L 57 L 17 188/79 H 93 Room Air 05/15/23 08:45 36.4 C L 51 L 18 173/78 H 95 Room Air 05/15/23 03:45 36.9 C 54 L 18 154/75 H 95 Room Air Laboratory Results BMP 05/15/23 06:05 Sodium 138 Potassium 3.6 Chloride 106 Carbon Dioxide 26 BUN 18 Creatinine 0.64 Glucose 115 H Calcium 8.7 Liver Function 05/15/23 Range/Units 06:05 Total Bilirubin 0.2 (0.2-1.0) mg/dl AST 18 (13-39) U/L ALT 12 (7-52) U/L Alkaline Phosphatase 50 (34-104) U/L Albumin 3.5 (3.4-5.0) gm/dl Medications Administered Current Inpatient Medications Acetaminophen (Acetaminophen 500 Mg Tab) 1,000 mg PO TID [facility] Stop: 06/11/23 20:59 Last Admin: 05/15/23 11:06 Dose: 1,000 mg Apixaban (Apixaban 2.5 Mg Tab) 2.5 mg PO BID [facility] Stop: 06/11/23 20:59 Last Admin: 05/15/23 11:07 Dose: 2.5 mg Cetirizine HCl (Cetirizine Hcl 10 Mg Tablet) 10 mg PO DAILY [facility] Stop: 06/12/23 08:59 Last Admin: 05/15/23 11:07 Dose: 10 mg Docusate Sodium (Docusate Sodium 100 Mg Cap) 100 mg PO HS [facility] Stop: 06/11/23 20:59 Last Admin: 05/14/23 20:16 Dose: 100 mg Donepezil HCl (Donepezil Hcl 10 Mg Tab) 10 mg PO HS [facility] Stop: 06/11/23 20:59 Last Admin: 05/14/23 20:17 Dose: 10 mg Hydroxyzine HCl (Hydroxyzine Hcl 25 Mg Tab) 25 mg PO HS [facility] Stop: 06/11/23 20:59 Last Admin: 05/14/23 20:16 Dose: 25 mg Ceftriaxone Sodium 2,000 mg/ (Dextrose) 70 mls @ 100 mls/hr IV Q24H [facility]; Protocol Stop: 05/18/23 13:59 Last Infusion: 05/14/23 15:26 Dose: Infused Losartan Potassium (Losartan Potassium 25 Mg Tab) 25 mg PO DAILY [facility] Stop: 06/12/23 08:59 Last Admin: 05/15/23 11:07 Dose: 25 mg Melatonin (Melatonin 3 Mg Tab) 3 mg PO HS PRN PRN Reason: Sleep Stop: 06/12/23 20:22 Last Admin: 05/14/23 20:15 Dose: 3 mg Memantine (Memantine Hcl 10 Mg Tab) 10 mg PO BID [facility] Stop: 06/11/23 20:59 Last Admin: 05/15/23 11:06 Dose: 10 mg Ondansetron HCl (Ondansetron Inj 2 Mg/Ml 2 Ml Vial) 4 mg IV Q6H PRN PRN Reason: Nausea Stop: 06/11/23 16:27 Oxybutynin Chloride (Oxybutynin Chloride Xl 5 Mg Tabcr) 5 mg PO DAILY [facility]; Protocol Stop: 06/12/23 08:59 Pantoprazole Sodium (Pantoprazole 40 Mg Tab) 40 mg PO QAM [facility]; Protocol Stop: 06/12/23 08:59 Last Admin: 05/15/23 11:06 Dose: 40 mg Polyethylene Glycol (Polyethylene (Miralax) 17 Gm Pack) 17 gm PO DAILY PRN PRN Reason: Constipation Stop: 06/11/23 16:27 Pravastatin Sodium (Pravastatin Sod 40 Mg Tab) 80 mg PO DAILY [facility] Stop: 06/12/23 08:59 Last Admin: 05/15/23 11:07 Dose: 80 mg Sertraline HCl (Sertraline Hcl 100 Mg Tablet) 100 mg PO DAILY [facility] Stop: 06/12/23 08:59 Last Admin: 05/15/23 11:06 Dose: 100 mg (8) HTN (hypertension) Hypertension type: unspecified Qualified Code(s): I10 - Essential (primary) hypertension
[2023-05-15] MEDS: MELATONIN 3 MG TAB PO PRN (20:16)
[2023-05-15] MEDS: DOCUSATE SODIUM 100 MG CAP PO SCH (20:17)
[2023-05-15] MEDS: hydrOXYzine HCl 25 MG TAB PO SCH (20:18)
[2023-05-15] MEDS: DONEPEZIL HCL 10 MG TAB PO SCH (22:05)
[2023-05-16 07:06] LABS: BUN Creatinine Ratio 24.2 (10-20); Calcium 8.5 mg/dl (8.6-10.3); Creatinine Clr Calc Pharmacy 55.6 ml/min; Est GFR (African American) 95.3 ml/min; Est GFR (Non-African American) 82.2 ml/min; Potassium 3.7 mmol/L (3.5-5.1)
[2023-05-16 07:31] LABS: Magnesium 1.8 mg/dl (1.7-2.4)
[2023-05-16] MEDS: ACETAMINOPHEN 500 MG TAB PO SCH ×3 (09:45→20:55)
[2023-05-16] MEDS: PRAVASTATIN SOD 40 MG TAB PO SCH (09:45)
[2023-05-16] MEDS: SERTRALINE HCL 100 MG TABLET PO SCH (09:45)
[2023-05-16] MEDS: MEMANTINE HCL 10 MG TAB PO SCH ×2 (09:45→20:57)
[2023-05-16] MEDS: PANTOprazole 40 MG TAB PO SCH (09:45)
[2023-05-16] MEDS: APIXABAN 2.5 MG TAB PO SCH ×2 (09:45→20:56)
[2023-05-16] MEDS: CETIRIZINE HCL 10 MG TABLET PO SCH (09:45)
[2023-05-16] MEDS: LOSARTAN POTASSIUM 50 MG TAB PO SCH (10:45)
[2023-05-16] MEDS ORDERED: CALCIUM CARBONATE 500 MG CHEWABLE TAB PO PRN (13:07)
--- NOTE | 2023-05-16 15:05 | Hospitalist Progress Note ---
Date of Service May 16, 2023 Assessment & Plan (1) Syncope: Plan: Patient is 87-year-old female with PMH paroxysmal atrial fibrillation anticoagulated on Eliquis, sick sinus syndrome s/p pacemaker, HTN, HLD, breast cancer s/p bilateral mastectomy, Alzheimer disease, GERD presented to ER from [facility] with complaint of syncopal episode this morning. Syncope DDX: Vasovagal, orthostatic hypotension, Paxlovid medication side effect, hypoxi a, R/O arrhythmia --CT head:There is no hemorrhage, mass effect, or evidence of acute territorial ischemia by CT criteria. --Troponin X 2 Negative Check orthostatics-not documented yet No arrhythmias noted Pacemaker interrogation done without any recommendation Fall precautions-Will need PT and OT evaluation No more episodes of syncope and no dizziness Denies any more symptoms of dizziness and or no syncope noted Blood pressure remains on the upper side-losartan 25 mg now Will increase losartan to 50 mg Blood pressure seems to be minimally elevated (2) Acute respiratory failure with hypoxia: (3) COVID-19: Plan: Acute respiratory failure with hypoxia COVID-19 infection 05/09/23 +COVID-19 test outpatient 05/10/23 reported increased generalized weakness, 1 episode of vomiting. Outpatient O2 sats reported 90-92% on RA. Paxlovid started 05/10/23 --CTA:No evidence for a pulmonary embolus. No focal lung consolidations to suggest a pneumonia. Mild cardiomegaly. Large hiatus hernia. Mild circumferential thickening of the esophagus suggestive of a mild esophagitis. Thickening of the gastric wall versus underdistention. This could represent a gastritis. Focal high-grade stenosis at the proximal aberrant right subclavian artery due to the calcified plaque. -- Check CRP, procalcitonin Empirically started on Rocephin which will be continued due to UTI Wean off of supplemental oxygen as able Continue isolation precautions Respiratory status unremarkable and has been saturating normally on room air Will not need any further medications for COVID-19 infection Remains stable from COVID-19 virus infection and has been saturating normally on room air (4) Metabolic encephalopathy: Plan: Cleared (5) Acute UTI: Plan: UTI Urine culture growing gram-negative bacilli Continue Rocephin as above Follow-up cultures-growing E. coli and sensitive to ceftriaxone No more urinary symptoms (6) A-fib: Plan: History of paroxysmal atrial fibrillation chronically anticoagulated on Eliquis Eliquis had been held past 2 days while on Paxlovid Continue Eliquis and the rate is controlled (7) Sick sinus syndrome: Plan: S/P pacemaker Paced rhythm on EKG The monitor reviewed and the patient did not have any runs of V. tach as is reported before (8) HTN (hypertension): Plan: Continue losartan (9) Hyperlipidemia: Plan: Continue pravastatin (10) Dementia: Plan: History of Alzheimer's dementia Continue memantine, donepezil Monitor for delirium (11) GERD (gastroesophageal reflux disease): Plan: Continue PPI (12) History of breast cancer: Plan: S/P bilateral mastectomy DVT Prophylaxis On Eliquis Code Status DNR/DNI Awaiting placement-medically stable to be discharged Admission and Anticipated Discharge Date Admission Date: May 12, 2023 Subjective 05/14/2023 The patient was seen and examined in medical telemetry unit and in the COVID room She has been feeling much better and denies any respiratory symptoms No cough and no shortness of breath at rest and has been saturating normally on room air Noted to have UTI without any symptoms 05/15/2023 The patient was seen and examined in medical telemetry unit She has been feeling much better without any respiratory symptoms at rest Has been saturating on room air Has had physical therapy and will need rehab placement 05/16/2023 The patient was seen and examined in medical telemetry unit She has been complaining epigastric discomfort but no other associated symptoms with it Has been saturating normally on room air without any respiratory symptoms Review of Systems Review of Systems: All systems reviewed and are unremarkable except as noted below Physical Exam Physical Exam: Lying in bed comfortably Constitutional: well developed, well nourished, + ill appearing and average body habitus Eyes: PERRL, conjunctivae normal, anicteric sclerae ENMT: external ear and nose normal, oropharynx normal Neck: trachea midline, no thyromegaly Respiratory: no respiratory distress Auscultation: + diminished lung sounds and + crackles (Minimal crackles at the bases) Cardiovascular: Rate/Rhythm: regular rate and regular rhythm; not tachycardic Heart Sounds: normal S1 and normal S2; no murmur Extremities: no edema Gastrointestinal (Abdomen): Inspection/Auscultation: normal bowel sounds; abdomen not distended Percussion/Palpation: abdomen soft; abdomen nontender Neurologic: normal touch/pain/proprioception and moves all extremities; no focal motor deficits Psychiatric: A+Ox3, euthymic affect Lymphatic: no cervical or axillary lymphadenopathy Results & Data Results & Data Vital Signs (Past 12 Hours) Vital Signs Temp Pulse Pulse Resp BP Pulse Ox O2 Del Method 05/16/23 08:47 66 05/16/23 08:39 36.7 C 60 18 166/88 H 93 Room Air 05/16/23 03:52 36.4 C L 55 L 16 153/71 H 94 [address] Air Laboratory [address] [facility] 05/16/23 06:08 Sodium 140 Potassium 3.7 Chloride 107 Carbon Dioxide 28 BUN 15 Creatinine 0.62 Glucose 108 H Calcium 8.5 L Medications Administered Current Inpatient Medications Acetaminophen (Acetaminophen 500 Mg Tab) 1,000 mg PO TID [facility] Stop: 06/11/23 20:59 Last Admin: 05/16/23 09:45 Dose: 1,000 mg Apixaban (Apixaban 2.5 Mg Tab) 2.5 mg PO BID [facility] Stop: 06/11/23 20:59 Last Admin: 05/16/23 09:45 Dose: 2.5 mg Calcium Carbonate (Calcium Carbonate 500 Mg Chewable Tab) 500 mg PO Q6H PRN PRN Reason: Indigestion Stop: 06/15/23 13:06 Cetirizine HCl (Cetirizine Hcl 10 Mg Tablet) 10 mg PO DAILY [facility] Stop: 06/12/23 08:59 Last Admin: 05/16/23 09:45 Dose: 10 mg Docusate Sodium (Docusate Sodium 100 Mg Cap) 100 mg PO HS [facility] Stop: 06/11/23 20:59 Last Admin: 05/15/23 20:17 Dose: 100 mg Donepezil HCl (Donepezil Hcl 10 Mg Tab) 10 mg PO HS [facility] Stop: 06/11/23 20:59 Last Admin: 05/15/23 22:05 Dose: 10 mg Hydroxyzine HCl (Hydroxyzine Hcl 25 Mg Tab) 25 mg PO HS [facility] Stop: 06/11/23 20:59 Last Admin: 05/15/23 20:18 Dose: 25 mg Ceftriaxone Sodium 2,000 mg/ (Dextrose) 70 mls @ 100 mls/hr IV Q24H [facility]; Protocol Stop: 05/18/23 13:59 Last Infusion: 05/15/23 14:50 Dose: Infused Losartan Potassium (Losartan Potassium 50 Mg Tab) 50 mg PO DAILY [facility] Stop: 06/15/23 08:59 Last Admin: 05/16/23 10:45 Dose: 50 mg Melatonin (Melatonin 3 Mg Tab) 3 mg PO HS PRN PRN Reason: Sleep Stop: 06/12/23 20:22 Last Admin: 05/15/23 20:16 Dose: 3 mg Memantine (Memantine Hcl 10 Mg Tab) 10 mg PO BID [facility] Stop: 06/11/23 20:59 Last Admin: 05/16/23 09:45 Dose: 10 mg Ondansetron HCl (Ondansetron Inj 2 Mg/Ml 2 Ml Vial) 4 mg IV Q6H PRN PRN Reason: Nausea Stop: 06/11/23 16:27 Oxybutynin Chloride (Oxybutynin Chloride Xl 5 Mg Tabcr) 5 mg PO DAILY [facility]; Protocol Stop: 06/12/23 08:59 Pantoprazole Sodium (Pantoprazole 40 Mg Tab) 40 mg PO QAM [facility]; Protocol Stop: 06/12/23 08:59 Last Admin: 05/16/23 09:45 Dose: 40 mg Polyethylene Glycol (Polyethylene (Miralax) 17 Gm Pack) 17 gm PO DAILY PRN PRN Reason: Constipation Stop: 06/11/23 16:27 Pravastatin Sodium (Pravastatin Sod 40 Mg Tab) 80 mg PO DAILY [facility] Stop: 06/12/23 08:59 Last Admin: 05/16/23 09:45 Dose: 80 mg Sertraline HCl (Sertraline Hcl 100 Mg Tablet) 100 mg PO DAILY [facility] Stop: 06/12/23 08:59 Last Admin: 05/16/23 09:45 Dose: 100 mg (8) HTN (hypertension) Hypertension type: unspecified Qualified Code(s): I10 - Essential (primary) hypertension
[2023-05-16] MEDS: cefTRIAXone SODIUM 2,000 MG in DEXTROSE 5% 50 ML IV SCH (15:46)
[2023-05-16] MEDS: MELATONIN 3 MG TAB PO PRN (20:54)
[2023-05-16] MEDS: DOCUSATE SODIUM 100 MG CAP PO SCH (20:56)
[2023-05-16] MEDS: DONEPEZIL HCL 10 MG TAB PO SCH (20:57)
[2023-05-16] MEDS: hydrOXYzine HCl 25 MG TAB PO SCH (21:55)
[2023-05-17] MEDS: MEMANTINE HCL 10 MG TAB PO SCH (09:45)
[2023-05-17] MEDS: CETIRIZINE HCL 10 MG TABLET PO SCH (09:45)
[2023-05-17] MEDS: PANTOprazole 40 MG TAB PO SCH (09:45)
[2023-05-17] MEDS: LOSARTAN POTASSIUM 50 MG TAB PO SCH (09:45)
[2023-05-17] MEDS: PRAVASTATIN SOD 40 MG TAB PO SCH (09:46)
[2023-05-17] MEDS: APIXABAN 2.5 MG TAB PO SCH (09:46)
[2023-05-17] MEDS: SERTRALINE HCL 100 MG TABLET PO SCH (09:46)
[2023-05-17] MEDS: ACETAMINOPHEN 500 MG TAB PO SCH ×2 (09:46→13:38)
--- NOTE | 2023-05-17 12:34 | Hospitalist Progress Note ---
Date of Service May 17, 2023 Assessment & Plan (1) Syncope: Plan: Patient is 87-year-old female with PMH paroxysmal atrial fibrillation anticoagulated on Eliquis, sick sinus syndrome s/p pacemaker, HTN, HLD, breast cancer s/p bilateral mastectomy, Alzheimer disease, GERD presented to ER from [facility] with complaint of syncopal episode this morning. Syncope DDX: Vasovagal, orthostatic hypotension, Paxlovid medication side effect, hypoxi a, R/O arrhythmia --CT head:There is no hemorrhage, mass effect, or evidence of acute territorial ischemia by CT criteria. --Troponin X 2 Negative Check orthostatics-not documented yet No arrhythmias noted Pacemaker interrogation done without any recommendation Fall precautions-Will need PT and OT evaluation No more episodes of syncope and no dizziness Denies any more symptoms of dizziness and or no syncope noted Blood pressure remains on the upper side-losartan 25 mg now Will increase losartan to 50 mg Blood pressure seems to be minimally elevated Blood pressure is stable today and will be discharged home this afternoon (2) Acute respiratory failure with hypoxia: Plan: No more hypoxia and has been saturating normally on room air (3) COVID-19: Plan: Acute respiratory failure with hypoxia COVID-19 infection 05/09/23 +COVID-19 test outpatient 05/10/23 reported increased generalized weakness, 1 episode of vomiting. Outpatient O2 sats reported 90-92% on RA. Paxlovid started 05/10/23 --CTA:No evidence for a pulmonary embolus. No focal lung consolidations to suggest a pneumonia. Mild cardiomegaly. Large hiatus hernia. Mild circumferential thickening of the esophagus suggestive of a mild esophagitis. Thickening of the gastric wall versus underdistention. This could represent a gastritis. Focal high-grade stenosis at the proximal aberrant right subclavian artery due to the calcified plaque. -- Check CRP, procalcitonin Empirically started on Rocephin which will be continued due to UTI Wean off of supplemental oxygen as able Continue isolation precautions Respiratory status unremarkable and has been saturating normally on room air Will not need any further medications for COVID-19 infection Remains stable from COVID-19 virus infection and has been saturating normally on room air Does not require any treatment for COVID and she will need to be isolated until 05/22 (4) Metabolic encephalopathy: Plan: Cleared (5) Acute UTI: Plan: UTI Urine culture growing gram-negative bacilli Continue Rocephin as above Follow-up cultures-growing E. coli and sensitive to ceftriaxone No more urinary symptoms Will give antibiotic for 2 more days orally to continue (6) A-fib: Plan: History of paroxysmal atrial fibrillation chronically anticoagulated on Eliquis Eliquis had been held past 2 days while on Paxlovid Continue Eliquis and the rate is controlled (7) Sick sinus syndrome: Plan: S/P pacemaker Paced rhythm on EKG The monitor reviewed and the patient did not have any runs of V. tach as is reported before (8) HTN (hypertension): Plan: Continue losartan (9) Hyperlipidemia: Plan: Continue pravastatin (10) Dementia: Plan: History of Alzheimer's dementia Continue memantine, donepezil Monitor for delirium (11) GERD (gastroesophageal reflux disease): Plan: Continue PPI (12) History of breast cancer: Plan: S/P bilateral mastectomy DVT Prophylaxis On Eliquis Code Status DNR/DNI Awaiting placement-medically stable to be discharged-will be discharged to personal-alf this afternoon Admission and Anticipated Discharge Date Admission Date: May 12, 2023 Subjective 05/14/2023 The patient was seen and examined in medical telemetry unit and in the COVID room She has been feeling much better and denies any respiratory symptoms No cough and no shortness of breath at rest and has been saturating normally on room air Noted to have UTI without any symptoms 05/15/2023 The patient was seen and examined in medical telemetry unit She has been feeling much better without any respiratory symptoms at rest Has been saturating on room air Has had physical therapy and will need rehab placement 05/16/2023 The patient was seen and examined in medical telemetry unit She has been complaining epigastric discomfort but no other associated symptoms with it Has been saturating normally on room air without any respiratory symptoms 05/17/2023 The patient was seen and examined in medical telemetry unit She has been stable and denies any significant symptoms Denies any respiratory symptoms and has been saturating normally on room air She will be discharged to personal-alf this afternoon Review of Systems Review of Systems: All systems reviewed and are unremarkable except as noted below Physical Exam Physical Exam: Lying in bed comfortably Constitutional: well developed, well nourished, + ill appearing and average body habitus Eyes: PERRL, conjunctivae normal, anicteric sclerae ENMT: external ear and nose normal, oropharynx normal Neck: trachea midline, no thyromegaly Respiratory: no respiratory distress Auscultation: + diminished lung sounds and + crackles (Minimal crackles at the bases) Cardiovascular: Rate/Rhythm: regular rate and regular rhythm; not tachycardic Heart Sounds: normal S1 and normal S2; no murmur Extremities: no edema Gastrointestinal (Abdomen): Inspection/Auscultation: normal bowel sounds; abdomen not distended Percussion/Palpation: abdomen soft; abdomen nontender Musculoskeletal: No acute arthritis involving any of the joint Neurologic: normal touch/pain/proprioception and moves all extremities; no focal motor deficits Psychiatric: A+Ox3, euthymic affect Lymphatic: no cervical or axillary lymphadenopathy Results & Data Results & Data Vital Signs (Past 12 Hours) Vital Signs Temp Pulse Pulse Resp BP Pulse Ox O2 Del Method 05/17/23 12:02 36.6 C 59 L 18 136/71 94 Room Air 05/17/23 09:53 Room Air 05/17/23 07:59 37 C 62 16 182/94 H 94 Room Air 05/17/23 07:22 70 05/17/23 03:37 36.6 C 61 16 175/74 H 93 Room Air Medications Administered Current Inpatient Medications Acetaminophen (Acetaminophen 500 Mg Tab) 1,000 mg PO TID ROMINA Stop: 06/11/23 20:59 Last Admin: 05/17/23 09:46 Dose: 1,000 mg Apixaban (Apixaban 2.5 Mg Tab) 2.5 mg PO BID ROMINA Stop: 06/11/23 20:59 Last Admin: 05/17/23 09:46 Dose: 2.5 mg Calcium Carbonate (Calcium Carbonate 500 Mg Chewable Tab) 500 mg PO Q6H PRN PRN Reason: Indigestion Stop: 06/15/23 13:06 Cetirizine HCl (Cetirizine Hcl 10 Mg Tablet) 10 mg PO DAILY ROMINA Stop: 06/12/23 08:59 Last Admin: 05/17/23 09:45 Dose: 10 mg Docusate Sodium (Docusate Sodium 100 Mg Cap) 100 mg PO HS ROMINA Stop: 06/11/23 20:59 Last Admin: 05/16/23 20:56 Dose: 100 mg Donepezil HCl (Donepezil Hcl 10 Mg Tab) 10 mg PO HS ROMINA Stop: 06/11/23 20:59 Last Admin: 05/16/23 20:57 Dose: 10 mg Hydroxyzine HCl (Hydroxyzine Hcl 25 Mg Tab) 25 mg PO HS ROMINA Stop: 06/11/23 20:59 Last Admin: 05/16/23 21:55 Dose: 25 mg Ceftriaxone Sodium 2,000 mg/ (Dextrose) 70 mls @ 100 mls/hr IV Q24H [facility]; Protocol Stop: 05/18/23 13:59 Last Infusion: 05/16/23 16:29 Dose: Infused Losartan Potassium (Losartan Potassium 50 Mg Tab) 50 mg PO DAILY [facility] Stop: 06/15/23 08:59 Last Admin: 05/17/23 09:45 Dose: 50 mg Melatonin (Melatonin 3 Mg Tab) 3 mg PO HS PRN PRN Reason: Sleep Stop: 06/12/23 20:22 Last Admin: 05/16/23 20:54 Dose: 3 mg Memantine (Memantine Hcl 10 Mg Tab) 10 mg PO BID ROMINA Stop: 06/11/23 20:59 Last Admin: 05/17/23 09:45 Dose: 10 mg Ondansetron HCl (Ondansetron Inj 2 Mg/Ml 2 Ml Vial) 4 mg IV Q6H PRN PRN Reason: Nausea Stop: 06/11/23 16:27 Oxybutynin Chloride (Oxybutynin Chloride Xl 5 Mg Tabcr) 5 mg PO DAILY [facility]; Protocol Stop: 06/12/23 08:59 Pantoprazole Sodium (Pantoprazole 40 Mg Tab) 40 mg PO QAM [facility]; Protocol Stop: 06/12/23 08:59 Last Admin: 05/17/23 09:45 Dose: 40 mg Polyethylene Glycol (Polyethylene (Miralax) 17 Gm Pack) 17 gm PO DAILY PRN PRN Reason: Constipation Stop: 06/11/23 16:27 Pravastatin Sodium (Pravastatin Sod 40 Mg Tab) 80 mg PO DAILY [facility] Stop: 06/12/23 08:59 Last Admin: 05/17/23 09:46 Dose: 80 mg Sertraline HCl (Sertraline Hcl 100 Mg Tablet) 100 mg PO DAILY [facility] Stop: 06/12/23 08:59 Last Admin: 05/17/23 09:46 Dose: 100 mg (8) HTN (hypertension) Hypertension type: unspecified Qualified Code(s): I10 - Essential (primary) hypertension
[2023-05-17] MEDS: cefTRIAXone SODIUM 2,000 MG in DEXTROSE 5% 50 ML IV SCH (13:38)
--- NOTE | 2023-05-18 07:20 | Discharge Summary ---
Date of Service May 18, 2023 Admission HPI Per Admitting Provider Patient is 87-year-old female with PMH paroxysmal atrial fibrillation anticoagulated on Eliquis, sick sinus syndrome s/p pacemaker, HTN, HLD, breast cancer s/p bilateral mastectomy, Alzheimer disease, GERD presented to ER from [facility] with complaint of syncope. Minimal history obtained from patient secondary to dementia. History obtained from staff from [facility] as well as chart review. Staff report that patient had exposure to COVID-19 positive resident. Patient was tested positive on 05/09/23 and was positive. On 05/10/17 patient seemed more weak than usual. It was noted her O2 sats around 90-92%. Reported baseline O2 95%. States one episode of vomiting 3 days ago. Started Paxlovid on 05/10/23 and her Eliquis and pravastatin have been on hold since 05/10/23. Denies any noted SOB, wheezing. Patient reports feeling cold and having chills but staff have not noted recorded fever. Reports chronic cough while eating. Denies any increased coughing or noted hemoptysis. Today it is reported by staff that patient rang her call campbell and staff went in and staff found patient sitting in her wheelchair. States she grunted and then she appeared rose in coloration and her eyes rolled in head and states that she passed out for a few minutes. It is reported that when she awoke she couldn't squeeze with right hand and looked like she had questionable right facial droop. They state that she seemed to have some word finding issues after the episode. She also had mumbling speech which is not her baseline. Patient was found to have loose bowel movement during this episode. Patient reported she had to go to bathroom and staff were able to get her to bathroom and get her cleaned up. Reports that patient typically incontinent urine and occasionally stool, but typically stool incontinence occurs when can't get to bathroom quick enough. Denies any noted shaking, biting of tongue. States patient was alert when EMS arrived but did have some mumbled speech for them. At baseline patient alert to person, typically does not know her birthday and thinks she is living in [place] and that her parents are still alive. Patient does not require oxygen at baseline. Staff have not noticed any hematemesis, hematochezia, or melena. Currently when asked patient states "feel fine". Says "no" to CP, SOB, abdominal pain, KRUEGER, dizziness, extremity pain, dysuria, nausea, cough, rhinorrhea. Spoke with patient's daughter Torrie on phone. Reports patient is DNR/DNI. Patient's daughter Katarina is out of town on vacation currently. Admission Exam Per Admitting Provider Physical Exam: General: no distress, WDWN Head: normocephalic, atraumatic Eyes: PERRL, EOM's intact, conjunctiva non-injected, anicteric ENT: normal inspection external ears, nose, mucous membranes dry Neck: supple, trachea midline Lungs: clear, no respiratory distress on current 2L via NC, no wheezing/rhonchi/rales CV: RRR, no pretibial edema Abd: normal BS, soft, non-tender Ext: no cyanosis, no calf tenderness Neuro: Alert, oriented to person, can say her name clearly. Says birthday is [birth year] but does not know month or year. Clearly states she knows in ER but mumbles when tries to say the town. +diffuse weakness throughout Skin: warm, dry Principal Diagnosis Vasovagal syncope, COVID-19 virus infection, hypoxia-resolved, UTI, atrial fibrillation status post pacemaker, hypertension, dementia Discharge Exam Lying in bed comfortably Constitutional well developed, well nourished, + ill appearing and average body habitus Eyes PERRL, conjunctivae normal, anicteric sclerae ENMT external ear and nose normal, oropharynx normal Neck trachea midline, no thyromegaly Respiratory no respiratory distress Auscultation: + diminished lung sounds and + crackles (Minimal crackles at the bases) Cardiovascular Rate/Rhythm: regular rate and regular rhythm; not tachycardic Heart Sounds: normal S1 and normal S2; no murmur Extremities: no edema Gastrointestinal (Abdomen) Inspection/Auscultation: normal bowel sounds; abdomen not distended Percussion/Palpation: abdomen soft; abdomen nontender Neurologic normal touch/pain/proprioception and moves all extremities; no focal motor deficits Psychiatric A+Ox3, euthymic affect Lymphatic no cervical or axillary lymphadenopathy Discharge Data Allergies Allergy/AdvReac Type Severity Reaction Status Date / Time Sulfa (Sulfonamide Allergy Unknown ON [place] Verified 05/12/23 12:31 Antibiotics) [facility] Consultations 05/12/23 13:11 ED Decision to Admit Stat Ordered Studies 05/12/23 11:53 CT head/brain wo con Stat 05/12/23 14:00 CT angio chest PE protocol Stat Hospital Course (1) Syncope: Patient is 87-year-old female with PMH paroxysmal atrial fibrillation anticoagulated on Eliquis, sick sinus syndrome s/p pacemaker, HTN, HLD, breast cancer s/p bilateral mastectomy, Alzheimer disease, GERD presented to ER from [facility] with complaint of syncopal episode this morning. Syncope DDX: Vasovagal, orthostatic hypotension, Paxlovid medication side effect, hypoxia, R/O arrhythmia --CT head:There is no hemorrhage, mass effect, or evidence of acute territorial ischemia by CT criteria. --Troponin X 2 Negative Check orthostatics-not documented yet No arrhythmias noted Pacemaker interrogation done without any recommendation Fall precautions-Will need PT and OT evaluation No more episodes of syncope and no dizziness Denies any more symptoms of dizziness and or no syncope noted Blood pressure remains on the upper side-losartan 25 mg now Will increase losartan to 50 mg Blood pressure seems to be minimally elevated Blood pressure is stable today and will be discharged home this afternoon (2) Acute respiratory failure with hypoxia: No more hypoxia and has been saturating normally on room air (3) COVID-19: Acute respiratory failure with hypoxia COVID-19 infection 05/09/23 +COVID-19 test outpatient 05/10/23 reported increased generalized weakness, 1 episode of vomiting. Outpatient O2 sats reported 90-92% on RA. Paxlovid started 05/10/23 --CTA:No evidence for a pulmonary embolus. No focal lung consolidations to suggest a pneumonia. Mild cardiomegaly. Large hiatus hernia. Mild circumferential thickening of the esophagus suggestive of a mild esophagitis. Thickening of the gastric wall versus underdistention. This could represent a gastritis. Focal high-grade stenosis at the proximal aberrant right subclavian artery due to the calcified plaque. -- Check CRP, procalcitonin Empirically started on Rocephin which will be continued due to UTI Wean off of supplemental oxygen as able Continue isolation precautions Respiratory status unremarkable and has been saturating normally on room air Will not need any further medications for COVID-19 infection Remains stable from COVID-19 virus infection and has been saturating normally on room air Does not require any treatment for COVID and she will need to be isolated until 05/22 (4) Metabolic encephalopathy: Cleared (5) Acute UTI: UTI Urine culture growing gram-negative bacilli Continue Rocephin as above Follow-up cultures-growing E. coli and sensitive to ceftriaxone No more urinary symptoms Will give antibiotic for 2 more days orally to continue (6) A-fib: History of paroxysmal atrial fibrillation chronically anticoagulated on Eliquis Eliquis had been held past 2 days while on Paxlovid Continue Eliquis and the rate is controlled (7) Sick sinus syndrome: S/P pacemaker Paced rhythm on EKG The monitor reviewed and the patient did not have any runs of V. tach as is reported before (8) HTN (hypertension): Continue losartan (9) Hyperlipidemia: Continue pravastatin (10) Dementia: History of Alzheimer's dementia Continue memantine, donepezil Monitor for delirium (11) GERD (gastroesophageal reflux disease): Continue PPI (12) History of breast cancer: S/P bilateral mastectomy DVT Prophylaxis On Eliquis Code Status DNR/DNI Awaiting placement-medically stable to be discharged-will be discharged to personal-detention this afternoon Total Time Total Time Spent Total Time Spent (In Minutes): 35 minutes Discharge Plan Discharge Items Patient Disposition: Personal Half-Way Reason For Visit: HYPOXIA Discharge Diagnosis: Vasovagal syncope, COVID-19 virus infection, hypoxia-resolved, UTI, atrial fibrillation status post pacemaker, hypertension, dementia Condition on Discharge: Fair Activity: Resume your previous activity Activity Comment: Will need assistance in ADL's Non-emergency contact: Primary Care Provider Call non-emergency contact if: you have any medication questions and your symptoms worsen Follow-up/Referrals: Jimmy Jauregui DO [Primary Care Provider] - (PCP will see you upon return to your personal care facility. no specific appointment necessary.) Diet: Regular Addtl Attending Provider Instructions: Please take precautions to avoid falls Since the course of your antibiotic Please take your medications as advised You need to be quarantined until 05/22/2023 for recent COVID-19 virus infection Pending Studies at Discharge: No Stand-Alone Forms: [employer], Smoking Cessation Skilled Items Patient informed of condition?: Yes DNR: Yes Discharge Level of Care: Other Communicable Disease: Yes Discharge Prognosis: Stable Lines: None Urinary Catheter: No Medications and DC Order Prescriptions: New losartan 50 mg Tablet 50 mg PO DAILY 30 Days Qty: 30 0RF cephalexin 250 mg capsule 250 mg PO TID 3 Days Qty: 9 0RF Continued dextromethorphan polistirex [Delsym 12 hour] 30 mg/5 mL Suspension,Extended Rel 12 Hr 10 ml PO Q12H PRN (Reason: Cough) cetirizine [Zyrtec] 10 mg Tablet 10 mg PO DAILY sertraline 100 mg Tablet 100 mg PO DAILY lorazepam 0.5 mg Tablet 0.5 mg PO BID PRN (Reason: Anxiety) hydrocortisone 1 % Cream 1 applic TOPICAL BID PRN (Reason: AFFECTED AREA) nystatin 100,000 unit/gram Cream 1 applic TOPICAL DAILY PRN (Reason: NEEDED FOR YEAST) hydroxyzine HCl 25 mg Tablet 25 mg PO DAILY PRN (Reason: ALLERGIES) geriatric [id number] Tablet 1 tab PO DAILY cholecalciferol (vitamin D3) [Vitamin D3] 50 mcg (2,000 unit) Capsule 50 mcg PO DAILY tolterodine 2 mg capsule,extended release 24hr 2 mg PO DAILY alendronate 10 mg tablet 10 mg PO DAILY esomeprazole magnesium 40 mg capsule,delayed release(DR/EC) 40 mg PO QAM hydroxyzine HCl 25 mg tablet 25 mg PO HS Eliquis 2.5 mg tablet 2.5 mg PO BID donepezil 10 mg tablet 10 mg PO HS pravastatin 80 mg tablet 80 mg PO DAILY memantine 10 mg tablet 10 mg PO BID lidocaine [Lidocaine Pain Relief] 4 % Adhesive Patch,Medicated 1 patch TOPICAL DAILY PRN (Reason: pain) Rx Instructions: rib pain use acetaminophen 500 mg Tablet 1,000 mg PO TID MDD 3 GRAMS APAP/24 HOURS calcium carbonate-vitamin D3 [Calcium 600 + D(3)] 600 mg-10 mcg (400 unit) tablet 1 tab PO TIDM docusate sodium 100 mg capsule 100 mg PO HS diphenhydramine HCl [Benadryl] 25 mg capsule 25 mg PO Q8H PRN (Reason: itching) Qty: 30 0RF betamethasone dipropionate 0.05 % cream 1 applic topical BID PRN (Reason: Itching) Rx Instructions: Apply to areas of the trunk and extremities twice daily as needed for itching. Discontinued losartan 25 mg tablet 25 mg PO DAILY Paxlovid 4 tabs PO DIRECTED Rx Instructions: Take 2 tabs from the left, white side in am & 2 tabs from the right pink side in pm. Finish 05/15/23 Discharge Orders: Discharge Order (Routine); Ordered 05/17/23 Ordered By: Luana Delgadillo Admission Data Admit Date/Time: 05/12/23 14:00 Attending Provider: Luana Delgadillo Admit Provider: Delores Meneses Primary Care Provider: Jimmy Jauregui Other Providers: Delores Meneses ; Darien Garcia Other Interventions: Discharge Summary Assessment (RN) Last Done: 05/17/23 13:08
--- NOTE | 2023-05-27 13:24 | Coding Query ---
CODING QUERY Go by the discharge diagnosis To promote full compliance with coding requirements relating to patient care, provider participation is requested in all cases of hand fur cleaner uncertainty. Please assist us with the question(s) below: Coding Question(s): Pt admitted with Covid infection, syncope. Hospitalist progress notes documented acute hypoxic respiratory failure. Addendum on 05/[address] Garcia stated no acute hypoxic respiratory failure. Discharge Summary stated Acute hypoxic respiratory failure. Oxymetries in ED 91-95% . Seeking to clarify if patient was treated for acute hypoxic respiratory failure. Please check below. Thank you. JUAN Grace [facility] Physician's Response(s): Patient was treated for Acute Respiratory Failure, Present on Admission Patient was not treated for Acute Respiratory Failure Other: Please document: Principal Diagnosis: "that condition established after study, to be chiefly responsible for occasioning the admission of the patient to the hospital for care." Co-Existing Principal Diagnosis: "when two or more diagnoses equally meet the criteria for principal diagnosis as determined by the circumstances of admission, diagnostic work up, and/or therapy provided, and the Alphabetic Index, Tabular List, or another coding guideline does not provide sequencing direction, any one of the diagnoses may be sequenced first." "When the physician has documented what appears to be a current diagnosis in the body of the record, but has not included the diagnosis in the final diagnostic statement, the physician should be asked whether the diagnosis should be added." (Source Coding Clinic 2 QTR90. p3-4) JUAN JOSÉ
== END 2023-05-17 15:51 | disposition home or self-care (01) | DRG 177 ==
LOC: ED 10:53 → SUATTDRO 14:00 → 2W 14:00
DX: B96.20 Unspecified Escherichia coli [E. coli] as the cause of diseases classified elsewhere; Z79.01 Long term (current) use of anticoagulants; F02.80 Dementia in other diseases classified elsewhere, unspecified severity, without behavioral disturbance, psychotic disturbance, mood disturbance, and anxiety; Z90.13 Acquired absence of bilateral breasts and nipples; R55 Syncope and collapse; K21.9 Gastro-esophageal reflux disease without esophagitis; E78.5 Hyperlipidemia, unspecified; N39.0 Urinary tract infection, site not specified; I10 Essential (primary) hypertension; G93.41 Metabolic encephalopathy; Z95.0 Presence of cardiac pacemaker; Z87.891 Personal history of nicotine dependence; U07.1 COVID-19; I49.5 Sick sinus syndrome; I48.0 Paroxysmal atrial fibrillation; J96.01 Acute respiratory failure with hypoxia; Z66 Do not resuscitate; Z88.2 Allergy status to sulfonamides; G30.9 Alzheimer's disease, unspecified; R32 Unspecified urinary incontinence